=== PATIENT | male | born 1995 | race Caucasian/White ===

== ENCOUNTER 2017-12-24 19:47 | Inpatient (IN) | payer SELFPAY ==
[~2017-12-24 19:47] MED LIST: LORazepam 2 MG/ML VIAL ONE
[2017-12-24] MEDS ORDERED: NA CHLORIDE 0.9% 2,000 ML ONE (20:17)
[2017-12-24 20:24] LABS: Absolute Lymphocytes (CBC) 1.9 K/uL (0.7-4.9); Absolute Monocytes 0.8 K/uL (0.1-1.3); Absolute Neutrophil 7.3 K/uL (1.8-8.0); Basophils % 0.4 % (0-1.3); Eosinophils % 1.1 % (0-4.4); MCV 90.7 fL (80-100); MPV 8.4 fL (7.6-11.3); Monocytes % 7.5 % (3.3-12.3); RBC Red Blood Cell Count 4.74 M/uL (4.33-5.43)
[2017-12-24 20:28] LABS: Protime INR 1.11
[2017-12-24 20:52] LABS: Urine Blood NEGATIVE (NEG); Urine Glucose 2+ (NEG); Urine Protein 1+ (NEG); Urine Specific Gravity 1.025 (1.005-1.030); Urine pH 6.5 (5.0-7.0)
[2017-12-24 21:05] LABS: Barbiturates NEGATIVE (NEGATIVE); Benzodiazepines POSITIVE (NEGATIVE); Cocaine NEGATIVE (NEGATIVE); METHAMPHETAM POSITIVE (NEGATIVE); Methadone NEGATIVE (NEGATIVE); Opiates NEGATIVE (NEGATIVE); Phencyclidine NEGATIVE (NEGATIVE); THC Cannibis POSITIVE (NEGATIVE)
[2017-12-24 21:44] LABS: ALT/SGPT 24 U/L (12-78); AST/SGOT 27 U/L (15-37); Albumin 3.8 g/dL (3.4-5.0); Alkaline Phosphatase 73 U/L (45-117); BUN Blood Urea Nitrogen 6 mg/dL (7-18); Bicarbonate 26 mmol/L (21-32); Bilirubin Direct 0.1 mg/dL (0-0.2); Bilirubin Total 0.4 mg/dL (0.2-1.0); Glucose Level 202 mg/dL (74-106); Protein, Total 6.9 g/dL (6.4-8.2); Sodium Level 139 mmol/L (136-145)
[2017-12-24 21:47] LABS: Alcohol Serum/Plasma < 3 mg/dL (0-3)
[2017-12-24 21:49] LABS: Potassium 2.9 mmol/L (3.5-5.1)
[2017-12-24] MEDS ORDERED: D5.45NS W/KCL 20MEQ 1,000 ML IV ONE (22:12)
--- NOTE | 2017-12-24 22:36 | EDPHYS ---
Physician Documentation [facility] Name: Doctor Davis Age: 22 yrs Sex: Male : 1995 Arrival Date: 12/24/2017 Time: 19:51 Bed 2 Private MD: ED Physician Néstor Arora HPI: 12/24 20:00 This 22 yrs old Male presents to ER via Unassigned with complaints of Altered cp Mental Status. 20:00 The patient presents with decreased responsiveness. Onset: The symptoms/episode cp began/occurred at an unknown time. Possible causes: drug use, amphetamines, overdose on tylenol PM. 20:00 Current symptoms: In the emergency department the patient's symptoms have worsened, cp moderately. 20:00 Associated signs and symptoms: Pertinent positives: agitation, combativeness, Pertinent cp negatives: diarrhea, vomiting. Patient's baseline: Neuro: alert and fully oriented, Motor: no deficits, Ambulation: walks without assistance, Speech: normal. Patient reportedly took approximately 150 tablets of tylenol PM intentionally approximately 1 hour [employer]IOR [employer] as reported by friend after argument with girlfriend. Historical: - Allergies: 20:06 Tylenol; lp1 - Home Meds: 20:06 Unable to obtain [Active]; lp1 - PMHx: 20:06 Seizures; lp1 - PSHx: 20:06 Unable to obtain; lp1 - Immunization history:: Adult Immunizations unknown. - Social history:: Smoking status: unknown Patient uses street drugs, Methamphetamine (Meth). - Ebola Screening: : No symptoms or risks identified at this time. ROS: 20:05 Constitutional: Negative for fever. cp 20:05 Unable to obtain ROS due to altered mental status. cp Exam: 20:12 Constitutional: The patient appears alert, awake, non-toxic, well developed, well cp nourished, in obvious distress, mildly distressed, agitated 20:12 Head/Face: Normocephalic, atraumatic. cp 20:12 Eyes: Periorbital structures: appear normal, Pupils: constricted, bilaterally, Conjunctiva: normal, no exudate, no injection, Sclera: no appreciated abnormality, Lids and lashes: appear normal, bilaterally. 20:12 ENT: External ear(s): are unremarkable, Ear canal(s): are normal, clear, TM's: dullness, bilaterally, Nose: is normal, Mouth: Lips: dry, Posterior pharynx: is normal, airway is patent. 20:12 Neck: ROM/movement: is normal, is supple, without pain, no range of motions limitations, no meningismus, no nuchal rigidity. 20:12 Chest/axilla: Inspection: normal, Palpation: is normal, no crepitus, no tenderness. 20:12 Cardiovascular: Rate: tachycardic, Rhythm: regular, JVD: is not appreciated. 20:12 Respiratory: the patient does not display signs of respiratory distress, Respirations: normal, no use of accessory muscles, no retractions, no splinting, no tachypnea, Breath sounds: are clear throughout, no decreased breath sounds, no stridor, no wheezing. 20:12 Abdomen/GI: Inspection: abdomen appears normal, Bowel sounds: active, all quadrants, Palpation: abdomen is soft and non-tender, in all quadrants, rebound tenderness, is not appreciated, voluntary guarding, is not appreciated, involuntary guarding, is not appreciated. 20:12 Back: pain, is absent, ROM is normal. 20:12 Skin: Appearance: Temperature: warm, dry. 20:12 Neuro: Orientation: Not oriented to person, place, time, Mentation: slow to respond, Cerebellar function: unable to test, Motor: unable to test, Sensation: unable to test. Vital Signs: 20:04 BP 152 / 86; Pulse 109; Resp 17; Temp 98.6(A); Pulse Ox 97% on R/A; Weight 81.65 kg; lp1 Height 5 ft. 7 in. (170.18 cm); 20:30 BP 155 / 98; Pulse 122; Resp 21; Pulse Ox 97% on R/A; lp1 21:00 BP 153 / 89; Pulse 96; Resp 21; Pulse Ox 97% on R/A; lp1 22:35 BP 138 / 96; Pulse 90; Resp 18; Pulse Ox 99% on R/A; aa1 12/25 00:00 BP 170 / 92; Pulse 91; Resp 17; Pulse Ox 99% on R/A; lp1 01:05 BP 140 / 92; Pulse 88; Resp 19; Pulse Ox 98% on R/A; lp1 12/24 20:04 Body Mass Index 28.19 (81.65 kg, 170.18 cm) lp1 [place] Coma Score: 12/24 20:00 Eye Response: to pain(2). Verbal Response: confused(4). Motor Response: localizes lp1 pain(5). Total: 11. MDM: 19:57 Patient medically screened. cp 22:10 Data reviewed: vital signs, nurses notes, lab test result(s), EKG, and as a result, I will admit patient. 22:15 Physician consultation: Aracely Steve MD was called at 22:15, was contacted at 22:15, cp regarding admission, to the ICU, patient's condition. 12/24 19:56 Order name: Acetaminophen; Complete Time: 21:54 cp 12/24 19:56 Order name: Basic Metabolic Panel; Complete Time: 21:54 cp 12/24 21:56 Interpretation: Normal except: K 2.9; GLUC 202; BUN 6; GFR 84; CA 8.4. cp 12/24 19:56 Order name: CBC with Diff; Complete Time: 21:54 cp 12/24 19:56 Order name: ETOH Level; Complete Time: 21:54 cp 12/24 19:56 Order name: Hepatic Function; Complete Time: 21:54 cp 12/24 19:56 Order name: PT-INR; Complete Time: 21:54 cp 12/24 19:56 Order name: Ptt, Activated; Complete Time: 21:54 cp 12/24 19:56 Order name: Salicylate; Complete Time: 21:54 cp 12/24 19:56 Order name: Urine Drug Screen; Complete Time: 21:54 cp 12/24 20:26 Order name: Urine Dipstick--Ancillary (enter results); Complete Time: 21:54 12/24 21:59 Order name: Acetaminophen: redraw \T\2230; Complete Time: 23:18 cp 12/24 19:56 Order name: EKG; Complete Time: 19:57 cp 12/24 19:56 Order name: EKG - Nurse/Tech; Complete Time: 22:44 cp 12/24 19:56 Order name: IV Saline Lock; Complete Time: 20:08 cp 12/24 19:56 Order name: Labs collected and sent; Complete Time: 20:08 cp 12/24 19:56 Order name: Urine Dipstick-Ancillary (obtain specimen); Complete Time: 20:08 12/24 19:56 Order name: IV; Complete Time: 20:08 cp 12/24 19:57 Order name: Owens; Complete Time: 20:08 cp 12/24 20:34 Order name: Accucheck Blood Glucose; Complete Time: 21:24 cp Administered Medications: 19:44 Drug: Ativan 2 mg Route: IVP; Site: right antecubital; lp1 21:24 Follow up: Response: No adverse reaction; Marked relief of symptoms lp1 20:18 Drug: NS 0.9% 1000 ml Route: IV; Rate: 1 bolus; Site: left forearm; lp1 21:24 Follow up: IV Status: Completed infusion; IV Intake: 1000ml lp1 21:24 Drug: NS 0.9% 1000 ml Route: IV; Rate: 1 bolus; Site: left forearm; lp1 22:06 Follow up: IV Status: Completed infusion; IV Intake: 1000ml lp1 22:23 Drug: D5-1/2 NS with KCl 20 mEq/L 1000 ml Route: IV; Rate: 200 ml/hr; Site: left lp1 forearm; 23:39 Follow up: IV Status: Infusion continued upon admission lp1 23:13 Drug: Ativan 1 mg Route: IVP; Site: left forearm; lp1 23:38 Follow up: Response: Marked relief of symptoms lp1 23:32 CANCELLED (Physician Discretion): MucoMYST - Acetylcysteine 50 mg/kg IV at calculated cp rate once; not to exceed 5.5 grams, administer over 4 hours 12/25 00:45 Drug: MucoMYST - Acetylcysteine 150 mg/kg Route: IV; Rate: calculated rate; Site: left lp1 forearm; 00:52 Follow up: IV Status: Infusion continued upon admission lp1 01:06 Drug: Ativan 2 mg Route: IVP; Site: right antecubital; lp1 01:06 Follow up: Given prior to transfer to ICU lp1 Point of Care Testing: Blood Glucose: 12/24 19:45 Blood Glucose: 195 mg/dL; lp1 22:06 Blood Glucose: 74 mg/dL; lp1 Ranges: Critical Glucose Levels:Adult <50 mg/dl or >400 mg/dl <40 mg/dl or >180 mg/dl Disposition: 12/25 01:50 Chart complete. cp 02:03 Co-signature as Attending Physician, Néstor Arora MD. rn Disposition: 12/24/17 22:36 Hospitalization ordered by Aracely Steve for Inpatient Admission. Preliminary diagnosis are Suicide attempt, Hypokalemia, Benadryl Overdose, Altered mental status, unspecified. - Bed requested for Intensive Care Unit. - Status is Inpatient Admission. lp1 - Condition is Stable. - Problem is new. - Symptoms have improved. UTI on Admission? No Signatures: Dispatcher [employer] EDMS Damaris Eddy RN RN Néstor Arora MD MD rn Pena, Laura, RN RN lp1 Se Leong PA PA cp Corrections: (The following items were deleted from the chart) 12/24 21:56 21:56 Normal except: K 2.9; GLUC 202; BUN 6; GFR 84. cp cp 23:22 22:36 Hospitalization Ordered by Aracely Steve MD for Inpatient Admission. Preliminary kl diagnosis is Suicide attempt; Hypokalemia; Benadryl Overdose. Bed requested for Intensive Care Unit. Status is Inpatient Admission. Condition is Stable. Problem is new. Symptoms have improved. UTI on Admission? No. cp 23:32 23:17 MucoMYST - Acetylcysteine 50 mg/kg IV at calculated rate once; not to exceed 5.5 cp grams, administer over 4 hours ordered. cp 23:47 23:22 12/24/2017 22:36 Hospitalization Ordered by Aracely Steve MD for Inpatient cp Admission. Preliminary diagnosis is Suicide attempt; Hypokalemia; Benadryl Overdose. Bed requested for Intensive Care Unit. Status is Inpatient Admission. Condition is Stable. Problem is new. Symptoms have improved. UTI on Admission? No. kl 12/25 01:37 12/24 23:47 12/24/2017 22:36 Hospitalization Ordered by Aracely Steve MD for Inpatient lp1 Admission. Preliminary diagnosis is Suicide attempt; Hypokalemia; Benadryl Overdose; Altered mental status, unspecified. Bed requested for Intensive Care Unit. Status is Inpatient Admission. Condition is Stable. Problem is new. Symptoms have improved. UTI on Admission? No. cp
--- NOTE | 2017-12-24 22:36 | ER ---
Nurse's Notes [facility] Name: Doctor Davis Age: 22 yrs Sex: Male : 1995 Arrival Date: 12/24/2017 Time: 19:51 Bed 2 Private MD: Diagnosis: Suicide attempt;Hypokalemia;Benadryl Overdose;Altered mental status, unspecified Presentation: 12/24 20:00 Presenting complaint: EMS states: Patient has a hx of doing meth, had a break up with lp1 girlfriend today and possibly took 150 pills of what may have been Tylenol PM an hour ago, patient's friend unsure; Patient altered on arrival of EMS, PD at bedside for combativeness. Transition of care: patient was not received from another setting of care. Onset of symptoms was December 24, 2017 at 19:00. Risk Assessment: Do you want to hurt yourself or someone else? Other: Patient ingested multiple pills after breakup with girlfriend. Initial Sepsis Screen: Does the patient meet any 2 criteria? No. Patient's initial sepsis screen is negative. Does the patient have a suspected source of infection? No. Patient's initial sepsis screen is negative. Care prior to arrival: Medication(s) given: 25 g of Dextrose IV initiated. 20 GA, in the right antecubital area, Glucose check: 50 Oxygen administered. via nasal cannula. 20:00 Method Of Arrival: EMS: [facility] lp1 20:00 Acuity: CORINNA 2 lp1 Historical: - Allergies: 20:06 Tylenol; lp1 - Home Meds: 20:06 Unable to obtain [Active]; lp1 - PMHx: 20:06 Seizures; lp1 - PSHx: 20:06 Unable to obtain; lp1 - Immunization history:: Adult Immunizations unknown. - Social history:: Smoking status: unknown Patient uses street drugs, Methamphetamine (Meth). - Ebola Screening: : No symptoms or risks identified at this time. Screenin:07 Abuse screen: Denies threats or abuse. Denies injuries from another. Nutritional lp1 screening: No deficits noted. Tuberculosis screening: No symptoms or risk factors identified. Fall Risk Total Dickey Fall Scale indicates High Risk Score (45 or more points). Fall prevention measures have been instituted. Side Rails Up X 2 Placed Close to Nursing Station Frequent Obs/Assessments Occuring. Assessment: 20:15 General: Appears unkempt, Behavior is drowsy. Pain: Unable to use pain scale. Patient lp1 is disoriented. Neuro: Level of Consciousness is awake, obtunded, Moves all extremities. Pupils are sluggish. Cardiovascular: Capillary refill < 3 seconds in bilateral fingers toes Patient's skin is warm and dry. Rhythm is sinus rhythm. Respiratory: Airway is patent Trachea midline Respiratory effort is even, Respiratory pattern is regular, Breath sounds are clear bilaterally. GI: Abdomen is non-distended. : No signs and/or symptoms were reported regarding the genitourinary system. EENT: No signs and/or symptoms were reported regarding the EENT system. Derm: Skin is intact, Skin is normal. Musculoskeletal: Capillary refill < 3 seconds, in bilateral fingers. toes. 21:15 Reassessment: No changes from previously documented assessment. Patient continues to be lp1 drowsy, airway intact; gazing all around room, no purposeful eye contact. 22:30 Reassessment: Patient and/or family updated on plan of care and expected duration. Pain lp1 level reassessed. Reassessment: intermittent tremors noted. Neuro: Level of Consciousness is awake, Pupils are PERRLA. 23:30 Reassessment: No changes from previously documented assessment. Patient and/or family lp1 updated on plan of care and expected duration. Pain level reassessed. 23:30 Reassessment:. lp1 12/25 00:00 Reassessment: Patient's mother at bedside, aware of admission; Patient continues to lp1 have intermittent agitation, waves arms, no intentional movements. 01:00 Reassessment: Patient has increasing agitation, family at bedside; Provider notified; lp1 Verbal order given to administer Ativan 2mg IV. Psych: 12/24 20:00 Subjective: Patient's mood is Disoriented from probable overdose. Objective: Patient is lp1 restless, Speech is incoherent, Affect is flat, inappropriate. Interventions: Removed personal items and placed in bag. Patient placed in hospital gown. Searched person for dangerous items. Urine collected and sent for urine drug test. Suicide Risk Assessment: Sad Person Scale: Sex of patient: Male: Score 1 point. Age of patient: Score 1 point if patient 15-34. Depression: Score 1 point if signs of depression are present. Previous Attempt: Score 0 point if patient has not previously attempted suicide. Substance Abuse: Score 1 point if patient abuses alcohol or drugs. Rational Thinking: Score 1 point if patient is lacking rational thinking. Social Support: Score 0 if social support is present/available. Organized Plan: Score 1 point if patient had a plan in place. Relationship: Score 1 point if patient is , , , or for a single male Chronic Sickness: Score 0 point if patient does not have a chronic illness, debilitating, or severe disorder. TOTAL POINTS: If total points are 7-10, the proposed clinical action is to hospitalize or commit. Implement suicide precautions. Safety Checks: Personal items have been removed. Door is open. No visitors are present at this time. Patient uses methamphetamines. 12/25 01:00 Commitment: Patient will be an involuntary commitment. lp1 Vital Signs: 12/24 20:04 BP 152 / 86; Pulse 109; Resp 17; Temp 98.6(A); Pulse Ox 97% on R/A; Weight 81.65 kg; lp1 Height 5 ft. 7 in. (170.18 cm); 20:30 BP 155 / 98; Pulse 122; Resp 21; Pulse Ox 97% on R/A; lp1 21:00 BP 153 / 89; Pulse 96; Resp 21; Pulse Ox 97% on R/A; lp1 22:35 BP 138 / 96; Pulse 90; Resp 18; Pulse Ox 99% on R/A; aa1 12/25 00:00 BP 170 / 92; Pulse 91; Resp 17; Pulse Ox 99% on R/A; lp1 01:05 BP 140 / 92; Pulse 88; Resp 19; Pulse Ox 98% on R/A; lp1 12/24 20:04 Body Mass Index 28.19 (81.65 kg, 170.18 cm) lp1 [place] Coma Score: 12/24 20:00 Eye Response: to pain(2). Verbal Response: confused(4). Motor Response: localizes lp1 pain(5). Total: 11. ED Course: 19:40 Maintain EMS IV. Dressing intact. Good blood return noted. Site clean \T\ dry. Gauge \T\ lp 1 site: 20g R AC. 19:45 Inserted saline lock: 18 gauge in left forearm, using aseptic technique. aa1 19:50 Patient has correct armband on for positive identification. Placed in gown. Bed in low aa1 position. Side rails up X2. Seizure precautions initiated. monitoring analyst on. Pulse ox on. NIBP on. 19:51 Patient arrived in ED. ds1 19:55 Se Leong PA is PHCP. cp 19:55 Néstor Arora MD is Attending Physician. cp 19:55 Owens cath inserted, using sterile technique, 16 Fr., by me, balloon inflated, to aa1 gravity drainage, urine specimen collected. 19:59 Ludivina Vicente, COLTON is Primary Nurse. lp1 20:04 Triage completed. lp1 20:07 Arm band placed on left wrist. lp1 20:15 Safety Checks: Personal items have been removed. The door is open or patient has been lp1 placed in a hallway bed/chair. There are no family/friend visitors at this time. 20:30 Safety Checks: Personal items have been removed. The door is open or patient has been lp1 placed in a hallway bed/chair. There are no family/friend visitors at this time. 20:45 Safety Checks: Personal items have been removed. The door is open or patient has been lp1 placed in a hallway bed/chair. There are no family/friend visitors at this time. 21:00 Safety Checks: Personal items have been removed. The door is open or patient has been lp1 placed in a hallway bed/chair. There are no family/friend visitors at this time. 21:15 Safety Checks: Personal items have been removed. The door is open or patient has been lp1 placed in a hallway bed/chair. There are no family/friend visitors at this time. 21:30 Safety Checks: Personal items have been removed. The door is open or patient has been lp1 placed in a hallway bed/chair. There are no family/friend visitors at this time. 21:45 Safety Checks: Personal items have been removed. The door is open or patient has been lp1 placed in a hallway bed/chair. There are no family/friend visitors at this time. 22:00 Safety Checks: Personal items have been removed. The door is open or patient has been lp1 placed in a hallway bed/chair. There are no family/friend visitors at this time. 22:15 Safety Checks: Personal items have been removed. The door is open or patient has been lp1 placed in a hallway bed/chair. There are no family/friend visitors at this time. 22:15 Notified Nurse Practitioner and/or Physician Med Surg Nurse of a critical lab result(s), k bs1 2.9, tylenol level 67.4. 22:30 Safety Checks: Personal items have been removed. The door is open or patient has been lp1 placed in a hallway bed/chair. There are no family/friend visitors at this time. 22:33 Aracely Steve MD is Hospitalizing Provider. 22:33 Repeat lab(s) drawn. by mo, sent to lab. aa 22:36 Acetaminophen: redraw \T\2230 Sent. aa1 22:45 Safety Checks: Personal items have been removed. The door is open or patient has been lp1 placed in a hallway bed/chair. There are no family/friend visitors at this time. 23:00 Safety Checks: Personal items have been removed. The door is open or patient has been lp1 placed in a hallway bed/chair. There are no family/friend visitors at this time. 23:15 Safety Checks: Personal items have been removed. The door is open or patient has been lp1 placed in a hallway bed/chair. There are no family/friend visitors at this time. 23:30 Safety Checks: Personal items have been removed. The door is open or patient has been lp1 placed in a hallway bed/chair. There are no family/friend visitors at this time. 23:45 Safety Checks: Personal items have been removed. The door is open or patient has been lp1 placed in a hallway bed/chair. A family member and/or friend is present and encouraged to stay. Patient's mother and brother at bedside. 12/25 00:00 Safety Checks: Personal items have been removed. The door is open or patient has been lp1 placed in a hallway bed/chair. A family member and/or friend is present and encouraged to stay. 00:15 Safety Checks: Personal items have been removed. The door is open or patient has been lp1 placed in a hallway bed/chair. A family member and/or friend is present and encouraged to stay. Sitter present at this time. 00:30 Safety Checks: Personal items have been removed. The door is open or patient has been lp1 placed in a hallway bed/chair. A family member and/or friend is present and encouraged to stay. Sitter present at this time. 00:45 Safety Checks: Personal items have been removed. The door is open or patient has been lp1 placed in a hallway bed/chair. A family member and/or friend is present and encouraged to stay. Sitter present at this time. 00:52 No provider procedures requiring assistance completed. Patient admitted, IV remains in lp1 place. 01:00 Safety Checks: Personal items have been removed. The door is open or patient has been lp1 placed in a hallway bed/chair. A family member and/or friend is present and encouraged to stay. Sitter present at this time. 01:15 Safety Checks: Personal items have been removed. The door is open or patient has been lp1 placed in a hallway bed/chair. A family member and/or friend is present and encouraged to stay. Sitter present at this time. 01:30 Safety Checks: Personal items have been removed. The door is open or patient has been lp1 placed in a hallway bed/chair. A family member and/or friend is present and encouraged to stay. Sitter present at this time. Administered Medications: 12/24 19:44 Drug: Ativan 2 mg Route: IVP; Site: right antecubital; lp1 21:24 Follow up: Response: No adverse reaction; Marked relief of symptoms lp1 20:18 Drug: NS 0.9% 1000 ml Route: IV; Rate: 1 bolus; Site: left forearm; lp1 21:24 Follow up: IV Status: Completed infusion; IV Intake: 1000ml lp1 21:24 Drug: NS 0.9% 1000 ml Route: IV; Rate: 1 bolus; Site: left forearm; lp1 22:06 Follow up: IV Status: Completed infusion; IV Intake: 1000ml lp1 22:23 Drug: D5-1/2 NS with KCl 20 mEq/L 1000 ml Route: IV; Rate: 200 ml/hr; Site: left lp1 forearm; 23:39 Follow up: IV Status: Infusion continued upon admission lp1 23:13 Drug: Ativan 1 mg Route: IVP; Site: left forearm; lp1 23:38 Follow up: Response: Marked relief of symptoms lp1 23:32 CANCELLED (Physician Discretion): MucoMYST - Acetylcysteine 50 mg/kg IV at calculated cp rate once; not to exceed 5.5 grams, administer over 4 hours 12/25 00:45 Drug: MucoMYST - Acetylcysteine 150 mg/kg Route: IV; Rate: calculated rate; Site: left lp1 forearm; 00:52 Follow up: IV Status: Infusion continued upon admission lp1 01:06 Drug: Ativan 2 mg Route: IVP; Site: right antecubital; lp1 01:06 Follow up: Given prior to transfer to ICU lp1 Point of Care Testing: Blood Glucose: 12/24 19:45 Blood Glucose: 195 mg/dL; lp1 22:06 Blood Glucose: 74 mg/dL; lp1 Ranges: Intake: 21:24 IV: 1000ml; Total: 1000ml. lp1 22:00 IV: 2000ml (IV Fluid); Total: 3000ml. lp1 22:06 IV: 1000ml; Total: 4000ml. lp1 Output: 22:00 Urine: 1000ml (Owens); Total: 1000ml. lp1 12/25 00:00 Urine: 1000ml (Owens); Total: 2000ml. lp1 Outcome: 12/24 22:36 Decision to Hospitalize by Provider. cp 12/25 00:52 critical lp1 Instructed on the need for admit, mother at bedside 00:58 Admitted to ICU accompanied by nurse, accompanied by tech, via stretcher, room 1, with lp1 chart, Report called to COLTON Navarrete 01:37 Patient left the ED. lp1 Signatures: Sandra Stevenson RN RN aa1 Lillie Solomon ds1 Ludivina Vicente RN RN lp1 Se Leong PA PA Nola Zee, COLTON RN bs1 Corrections: (The following items were deleted from the chart) 12/24 20:18 20:04 BP 152 / 86; Pulse 109bpm; Resp 17bpm; Pulse Ox 97% RA; 81.65 kg; Height 5 ft. 7 lp1 in.; BMI: 28.1; lp1
[2017-12-24] MEDS ORDERED: LORazepam 2 MG/ML VIAL ONE (23:13)
[2017-12-24] MEDS: ACETYLCYSTEINE 8,200 MG in D5W 1,000 ML IV SCH (23:45)
--- NOTE | 2017-12-24 23:50 | P.HP ---
Certification for Inpatient Patient admitted to: Inpatient With expected LOS: >2 Midnights Practitioner: I am a practitioner with admitting privileges, knowledge of patient current condition, hospital course, and medical plan of care. Services: Services provided to patient in accordance with Admission requirements found in Title 42 Section 412.3 of the Code of Federal Regulations Patient History Date of Service: 12/24/17 Reason for admission: APAP overdose History of Present Illness: Mr Davis is a 22 years old male with history of seizure disorder, who apparently took possible 150 pills of Tylenol #3 after broke up with her girlfriend. It was a suicidal attempt. The patient arrived agitated, unable to provide any history. He has received ativan IV to decrease his level of agitation. Toxicology report shows acetaminophen level of 67.4 ug/ml. Subsequent monitor level revealed 95.3 ug/ml. UDS was positive for TCH, amphetamines, and benzodiazepines. Allergies acetaminophen [From Tylenol] Allergy (Unverified 10/24/15 14:26) Unknown No Known Drug Allergies Allergy (Unverified 12/19/14 20:39) Unknown NKA Allergy (Uncoded 07/08/15 22:21) Unknown Home medications list reviewed: Yes Home Medications: Carbamazepine [Tegretol*] 200 mg PO BID 03/30/15 - Past Medical/Surgical History Diabetic: No -: Seizures -: Asthma -: Compound FX Left Arm - Family History Family History: Reviewed- Non-Contributory - Social History Smoking Status: Unknown if ever smoked Alcohol use: Yes CD- Drugs: Yes Caffeine use: Yes Place of Residence: Home Review of Systems is unable to be obtained (uncooperative patient) Physical Examination - Physical Exam General: In no apparent distress, Other (sedated with medication due to agitation) HEENT: Atraumatic, PERRLA, Mucous membr. moist/pink, EOMI, Sclerae nonicteric Neck: Supple, 2+ carotid pulse no bruit, No LAD, Without JVD or thyroid abnormality Respiratory: Clear to auscultation bilaterally, Normal air movement Cardiovascular: Regular rate/rhythm, Normal S1 S2 Gastrointestinal: Normal bowel sounds, No tenderness Musculoskeletal: No tenderness Integumentary: No rashes Neurological: Normal tone, Sensation intact, Abnormal speech Lymphatics: No axilla or inguinal lymphadenopathy - Studies Laboratory Data (last 24 hrs) 12/24/17 19:45: PT 13.1 H, INR 1.11, APTT 23.9 L 12/24/17 19:45: WBC 10.2, Hgb 15.2, Hct 43.0, Plt Count 330 12/24/17 19:45: Sodium 139, Potassium 2.9 L*, BUN 6 L, Creatinine 1.10, Glucose 202 H, Total Bilirubin 0.4, AST 27, ALT 24, Alkaline Phosphatase 73 Assessment and Plan - Problems (Diagnosis) (1) Suicide attempt by acetaminophen overdose Current Visit: Yes Status: Acute Qualifiers: Encounter type: initial encounter Qualified Code(s): T39.1X2A - Poisoning by 4-Aminophenol derivatives, intentional self-harm, initial encounter (2) Hypokalemia Current Visit: Yes Status: Acute (3) Acute encephalopathy Current Visit: Yes Status: Acute - Plan The patient will be admitted to ICU for close monitoring. Initial liver function test and PT, INR were normal. He is receiving the first dose of Acetylcystine. The complete protocol has been ordered. Poison control was contacted and we are following their recommendations. Will replace electrolytes as needed by protocol. - Advance Directives Does patient have a Living Will: No Does patient have a Durable POA for Healthcare: No - Code Status/Comfort Care Code Status Assessed: Yes Code Status: Full Code
[2017-12-25] MEDS ORDERED: Acetylcysteine 6000mg/30mL IV ONE (00:40)
[2017-12-25] MEDS ORDERED: NA CHLORIDE 0.9% 250 ML ONE (00:40)
[2017-12-25] MEDS ORDERED: LORazepam 2 MG/ML VIAL ONE (01:07)
[2017-12-25] MEDS ORDERED: ONDANSETRON 4 MG/2 ML VIAL IV PRN (01:58)
[2017-12-25] MEDS: HALOPERIDOL LACT 5 MG/ML INJ IV PRN ×4 (02:15→19:51)
[2017-12-25] MEDS ORDERED: ACETYLCYST 6,000 MG/30 ML VIAL ONE ×2 (02:29→02:30)
[2017-12-25 02:46] LABS: Absolute Lymphocytes (CBC) 1.4 K/uL (0.7-4.9); Absolute Monocytes 0.6 K/uL (0.1-1.3); Absolute Neutrophil 7.2 K/uL (1.8-8.0); Basophils % 0.3 % (0-1.3); Eosinophils % 0.3 % (0-4.4); Hematocrit 41.9 % (39.6-49.0); Lymphocytes % 14.9 % (15.3-44.8); MCH 32.2 pg (27.0-35.0); MCV 91.7 fL (80-100); MPV 8.3 fL (7.6-11.3); Monocytes % 6.6 % (3.3-12.3); RBC Red Blood Cell Count 4.57 M/uL (4.33-5.43)
[2017-12-25 02:47] LABS: Protime INR 1.25
[2017-12-25 03:24] LABS: ALT/SGPT 27 U/L (12-78); AST/SGOT 25 U/L (15-37); Albumin 3.6 g/dL (3.4-5.0); Alkaline Phosphatase 70 U/L (45-117); BUN Blood Urea Nitrogen 4 mg/dL (7-18); Bicarbonate 25 mmol/L (21-32); Bilirubin Total 0.7 mg/dL (0.2-1.0); Glucose Level 92 mg/dL (74-106); Potassium 3.5 mmol/L (3.5-5.1); Protein, Total 6.6 g/dL (6.4-8.2); Sodium Level 144 mmol/L (136-145)
[2017-12-25] MEDS: NA CHLORIDE 0.9% 1,000 ML IV SCH ×2 (04:01→11:58)
[2017-12-25] MEDS ORDERED: D5W 1,000 ML IV ONE (04:29)
[2017-12-25] MEDS: ACETYLCYSTEINE 8,200 MG in D5W 1,000 ML IV SCH (07:00)
[2017-12-25 08:07] LABS: Absolute Neutrophil 5.9 K/uL (1.8-8.0); Basophils % 0.6 % (0-1.3); Eosinophils % 1.7 % (0-4.4); Hematocrit 45.2 % (39.6-49.0); Lymphocytes % 29.4 % (15.3-44.8); MCH 32.1 pg (27.0-35.0); MCV 92.1 fL (80-100); MPV 8.4 fL (7.6-11.3); Monocytes % 9.9 % (3.3-12.3)
[2017-12-25 08:11] LABS: Protime INR 1.34
[2017-12-25 08:27] LABS: ALT/SGPT 29 U/L (12-78); AST/SGOT 26 U/L (15-37); Albumin 3.7 g/dL (3.4-5.0); Alkaline Phosphatase 75 U/L (45-117); BUN Blood Urea Nitrogen 3 mg/dL (7-18); Bicarbonate 27 mmol/L (21-32); Bilirubin Total 0.5 mg/dL (0.2-1.0); Glucose Level 68 mg/dL (74-106); Potassium 3.7 mmol/L (3.5-5.1); Protein, Total 6.7 g/dL (6.4-8.2); Sodium Level 143 mmol/L (136-145)
[2017-12-25] MEDS ORDERED: ZIPRASIDONE MESYLA 20 MG/VIAL IM ONE ×3 (08:49→18:01)
[2017-12-25] MEDS ORDERED: WATER FOR INJ,STERILE 10 ML IM PRN ×2 (08:49→19:02)
--- NOTE | 2017-12-25 09:28 | EKG ---
Test Date: 2017-12-24 Test Time: 22:36:53 Movable Bulkhead Installer: CONRADO MEASUREMENT RESULTS: Intervals: Rate: 86 WA: 152 QRSD: 96 QT: 386 QTc: 461 [place]: P: 58 WA: 152 QRS: 58 T: 66 INTERPRETIVE STATEMENTS: Normal sinus rhythm Cannot rule out Anterior infarct, age undetermined Abnormal ECG Compared to ECG 05/13/2015 13:03:09 Myocardial infarct finding now present Sinus arrhythmia no longer present Electronically Signed On 12-25-17 09:27:19 CDT by Amado Moon
[2017-12-25] MEDS ORDERED: KCL 20 MEQ/100 mL IVPB 20 MEQ/100 ML BAG IV SCH (14:00)
[2017-12-25] MEDS: D5 0.45 NS 1,000 ML IV SCH (14:01)
[2017-12-25 14:47] LABS: Absolute Lymphocytes (CBC) 2.2 K/uL (0.7-4.9); Absolute Monocytes 0.8 K/uL (0.1-1.3); Absolute Neutrophil 6.4 K/uL (1.8-8.0); Basophils % 0.4 % (0-1.3); Eosinophils % 1.5 % (0-4.4); Lymphocytes % 22.8 % (15.3-44.8); MCH 31.7 pg (27.0-35.0); MCV 92.2 fL (80-100); MPV 8.3 fL (7.6-11.3); Monocytes % 8.7 % (3.3-12.3)
[2017-12-25 14:48] LABS: Protime INR 1.29
[2017-12-25 14:58] LABS: ALT/SGPT 25 U/L (12-78); AST/SGOT 19 U/L (15-37); Albumin 3.7 g/dL (3.4-5.0); Alkaline Phosphatase 69 U/L (45-117); BUN Blood Urea Nitrogen 2 mg/dL (7-18); Bicarbonate 24 mmol/L (21-32); Bilirubin Total 0.5 mg/dL (0.2-1.0); Glucose Level 77 mg/dL (74-106); Potassium 3.8 mmol/L (3.5-5.1); Protein, Total 6.6 g/dL (6.4-8.2); Sodium Level 143 mmol/L (136-145)
[2017-12-25] MEDS ORDERED: LORazepam 2 MG/ML VIAL IV ONE (16:03)
[2017-12-25 22:16] LABS: Protime INR 1.34
[2017-12-25 22:18] LABS: Absolute Monocytes 0.7 K/uL (0.1-1.3); Absolute Neutrophil 6.1 K/uL (1.8-8.0); Basophils % 0.4 % (0-1.3); Hematocrit 44.4 % (39.6-49.0); Lymphocytes % 22.5 % (15.3-44.8); MCH 31.4 pg (27.0-35.0); MCV 92.8 fL (80-100); MPV 8.3 fL (7.6-11.3); Monocytes % 7.7 % (3.3-12.3); RBC Red Blood Cell Count 4.79 M/uL (4.33-5.43)
[2017-12-25 22:27] LABS: ALT/SGPT 23 U/L (12-78); AST/SGOT 18 U/L (15-37); Albumin 3.5 g/dL (3.4-5.0); Alkaline Phosphatase 68 U/L (45-117); BUN Blood Urea Nitrogen 1 mg/dL (7-18); Bicarbonate 25 mmol/L (21-32); Bilirubin Total 0.4 mg/dL (0.2-1.0); Glucose Level 93 mg/dL (74-106); Potassium 3.5 mmol/L (3.5-5.1); Protein, Total 6.4 g/dL (6.4-8.2); Sodium Level 143 mmol/L (136-145)
[2017-12-26] MEDS: D5 0.45 NS 1,000 ML IV SCH ×3 (00:07→20:11)
[2017-12-26] MEDS: HALOPERIDOL LACT 5 MG/ML INJ IV PRN (00:07)
--- NOTE | 2017-12-26 08:37 | PN ---
Subjective: Currently he is lying in bed. He looks comfortable. He is sleep he had IV geodon earlier, but combative. Review of Systems: Otherwise unobtainable. Physical Examination: Vital Signs: Blood pressure is 154/93, respiratory rate 16, pulse 77, temperature 97.1. General: He is sleeping. Does not look in any distress, comfortable. HEENT: Atraumatic, normocephalic. Oral mucosa is moist. Neck: Supple. No JVD. No carotid bruits. Chest: Clear to auscultation. Good air entry. Heart: Regular rate and rhythm. S1, S2 normal. No gallop or murmur. Abdomen: Soft, nontender. No masses. No hepatosplenomegaly. Positive bowel sounds. Extremities: No clubbing, cyanosis, or edema. No calf tenderness. Neurologic: Grossly intact. Assessment And Plan: 1. Suicidal attempt by tylenol overdose and street drugs . We will keep the patient in ICU. We will continue monitoring his LFTs. There are no signs of liver damage at this point yet. I will check his ammonia level with the next set, it was not checked before. INR continues to be normal, cont NAC / Mucomyst infusion and he will continue every 4 hours per protocol and up to 17 infusion per poison center control. 2. Encephalopathy, resolved as the patient's drug overdose cleared but the patient was combative, so we will give him 1 dose of Geodon this morning. He is calmer now. 3. Hypokalemia, resolved. 4. Suicide attempt. The patient will need psych eval per hospital protocol and sitter when he is outside the ICU. VICKY/DELLA Voice ID: [id number] Report ID: [id number] MTDAlmaz
[2017-12-26 09:42] LABS: BUN Blood Urea Nitrogen 2 mg/dL (7-18); Bicarbonate 28 mmol/L (21-32); Glucose Level 83 mg/dL (74-106); Potassium 3.6 mmol/L (3.5-5.1); Sodium Level 142 mmol/L (136-145)
[2017-12-26] MEDS ORDERED: KCL 20 MEQ/100 mL IVPB 20 MEQ/100 ML BAG IV SCH (10:00)
--- NOTE | 2017-12-26 11:10 | EKG ---
Test Date: 2017-12-26 Test Time: 08:42:15 Health Safety Specialist: GIA MEASUREMENT RESULTS: Intervals: Rate: 79 NC: 170 QRSD: 92 QT: 382 QTc: 438 [place]: P: 57 NC: 170 QRS: 58 T: 48 INTERPRETIVE STATEMENTS: Normal sinus rhythm Septal infarct, age undetermined Abnormal ECG Compared to ECG 12/24/2017 22:36:53 No significant changes Electronically Signed On 12-26-17 11:09:48 CDT by Amado Moon
--- NOTE | 2017-12-26 11:19 | PN ---
Date of Progress Note: 12/26/2017 Subjective: The patient was seen and examined, chart reviewed, and case discussed with RN. The patient states he is doing well. Denies any abdominal pain. No nausea or vomiting. No acute events overnight. He had received some Haldol and Ativan. Review of Systems: Negative except as above. Medications: List reviewed. Objective: Vital Signs: Temperature 97.1, heart rate 73, blood pressure 155/79 , respirations 17, O2 100% on room air. General: Awake, alert, oriented x3 without any acute distress. CV: S1, S2. No murmurs. Regular rate and rhythm. Peripheral pulses present. Respiratory: Clear to auscultation bilaterally. No wheezing. No stridor. No use of accessory muscles Gastrointestinal: Abdomen is soft, nontender, nondistended. Positive bowel sounds. Extremities: No clubbing, cyanosis, or edema. Neurologic: Nonfocal. Laboratory Data: Sodium 142, potassium 3.6, chloride 109, CO2 28, BUN 2, creatinine 0.8, glucose 83, calcium 8.5, and magnesium 2. Acetaminophen level less than 2 yesterday. Assessment And Plan: A 22-year-old male with; 1. Suicide attempt secondary to Tylenol overdose. The patient is stable. Liver enzymes are normal. Tylenol level is less than 2 seconds. Liver enzymes normal. INR normal. Mucomyst was discontinued yesterday. The patient is medically stable for transfer to inpatient psychiatric facility. 2. Metabolic encephalopathy, resolved. The patient somewhat drowsy, however, able to answer questions appropriately. 3. Hypokalemia. Replace and monitor. /DELLA Voice ID: [id number] Report ID: [id number] MTDD
[2017-12-27 05:19] LABS: BUN Blood Urea Nitrogen 6 mg/dL (7-18); Bicarbonate 29 mmol/L (21-32); Glucose Level 99 mg/dL (74-106); Phosphorus 2.8 mg/dL (2.5-4.9); Potassium 3.6 mmol/L (3.5-5.1); Sodium Level 141 mmol/L (136-145)
[2017-12-27] MEDS ORDERED: D5 0.45 NS 1,000 ML IV ONE (05:22)
[2017-12-27] MEDS: D5 0.45 NS 1,000 ML IV SCH (05:23)
[2017-12-27] MEDS ORDERED: POTASSIUM CL SA 10 MEQ TAB PO ONE (05:25)
--- NOTE | 2017-12-27 08:52 | RAD REPORT ---
EXAM DESCRIPTION: RAD - Hand Right 2 View - 12/27/2017 6:56 am CLINICAL HISTORY: SWELLING Pain COMPARISON: Hand Right 3 View dated 04/04/2012 FINDINGS: Soft tissue swelling is seen along the dorsum of the hand. No fracture, dislocation or rad iopaque foreign body. Old ulnar styloid avulsion seen.
[2017-12-27] MEDS: HALOPERIDOL LACT 5 MG/ML INJ IV PRN (14:15)
--- NOTE | 2017-12-27 14:51 | EKG ---
Test Date: 2017-12-27 Test Time: 10:51:42 Glove Parts Cutter: GIA MEASUREMENT RESULTS: Intervals: Rate: 78 WA: 144 QRSD: 88 QT: 358 QTc: 408 [place]: P: 58 WA: 144 QRS: 59 T: 67 INTERPRETIVE STATEMENTS: Sinus rhythm with marked sinus arrhythmia Cannot rule out Anterior infarct, age undetermined Abnormal ECG Compared to ECG 12/26/2017 08:42:15 No significant changes Electronically Signed On 12-27-17 14:50:13 CDT by Amado Moon
--- NOTE | 2017-12-28 03:04 | DS ---
Date of Discharge: 12/27/2017 Admitting Diagnoses: 1.Suicide attempt secondary to acetaminophen overdose. 2.Hypokalemia. 3.Acute encephalopathy. Discharge Diagnoses: 1.Acetaminophen overdose, treated with acetylcysteine. 2.Suicide attempt. 3.Metabolic encephalopathy, resolved. 4.Hypokalemia, resolved. Hospital Course: The patient is a 22-year-old male comes into the hospital with acetaminophen overdo se. The patient took 150 pills of Tylenol No. 3 after breaking up with his girlfriend. This is a [place] icide attempt. The patient did have elevated level of acetaminophen and subsequent levels went up to 95. He was treated with acetylcysteine. Poison Control was also contacted by the admitting limai tracie. The patient's Tylenol level improved and was untraceable on the . The patient did have some mild electrolyte abnormalities, which improved. He never had any elevation in his liver enzymes. H is INR remained stable. The patient's mental status also improved and he was back to his baseline. The patient was then referred for [facility] for inpatient psychiatric referral due to suicide attemp t. The patient was then discharged after being accepted by Psych Facility. Medications: As per medication reconciliation list. Followup: Follow up with psychiatrist upon transfer. Return to ER for worsening condition. Diet: Regular. Activity: As tolerated. Total time spent discharging the patient was 35 minutes. Physical Examination: General: Awake, alert, oriented x3, not in acute distress. CV: S1, S2. No murmurs. Respiratory: Clear to auscultation bilaterally. No wheezing. Gastrointestinal: Abdomen is soft, nontender, nondistended. Positive bowel sounds. Extremities: No clubbing or cyanosis. Mild edema of the right hand. Neurologic: Nonfocal. Psych: Mood is depressed. Affect is congruent with mood. Insight and judgment are poor. SA/MODL Voice ID: [id number] Report ID: [id number]
[2017-12-28 05:39] LABS: ALT/SGPT 23 U/L (12-78); AST/SGOT 13 U/L (15-37); Albumin 3.9 g/dL (3.4-5.0); Alkaline Phosphatase 78 U/L (45-117); BUN Blood Urea Nitrogen 5 mg/dL (7-18); Bicarbonate 30 mmol/L (21-32); Bilirubin Total 0.4 mg/dL (0.2-1.0); Glucose Level 93 mg/dL (74-106); Potassium 3.7 mmol/L (3.5-5.1); Protein, Total 7.1 g/dL (6.4-8.2); Sodium Level 141 mmol/L (136-145)
[2017-12-28] MEDS ORDERED: POTASSIUM 25 MEQ EFFERV TAB PO ONE (06:00)
[2017-12-28] MEDS: HALOPERIDOL LACT 5 MG/ML INJ IV PRN (10:14)
[2017-12-28] MEDS ORDERED: LORazepam 2 MG/ML VIAL ONE (14:37)
[2017-12-28] MEDS ORDERED: NALOXONE HCL 2 MG/2 ML VIAL ONE (14:39)
--- NOTE | 2017-12-28 14:40 | PN ---
Date of Progress Note: 12/28/2017 Subjective: The patient seen and examined. Chart reviewed and case discussed with RN. The patient still not accepted to [facility], waiting on a bed, otherwise doing well. No complaints. Review of Systems: Negative except as above. Medications: List reviewed. Physical Examination: Vital Signs: Temperature 98.6, heart rate 71, blood pressure 113/50, respirations 11, O2 98% on room air. General: Awake, alert, oriented x3. No acute distress. CV: S1, S2. No murmurs. Respiratory: Moving air well bilaterally. Gastrointestinal: Abdomen is soft, nontender, nondistended. Positive bowel sounds. Extremities: No clubbing, cyanosis, or edema. Neuro: Nonfocal. Psych: Mood is depressed. Affect is flat. Insight and judgment are fair. Laboratory Data: Sodium 141, potassium 3.7, chloride 105, CO2 30, BUN 5, creatinine 0.9, glucose 93, calcium 8.8, AST 13, ALT 23, alkaline phosphatase 78. Assessment And Plan: A 22-year-old male with: 1. Suicide attempt, intentional overdose of acetaminophen. 2. Hypokalemia, replaced. 3. Acute metabolic encephalopathy, resolved. Plan: Continue monitoring with one-on-one due to suicide precautions. The patient awaiting bed at [facility]. The patient's emergency senior care will today and the patient will have to be sent to [facility] voluntarily. We will keep in contact with accepting facility once bed is available. ADDENDUM: Patient attempted to leave but was caught in the lobby. He had an episode of postural abnormality and neck jerking however when assessed back in the room, patient is able to talk, able to straighten out his neck and stop posturing. Haldol DC for possible extra pyramidal symptoms. Benztropine and ativan given. Patient became somnolent. SA/MODL Voice ID: [id number] Report ID: [id number] ODELL
[2017-12-28] MEDS ORDERED: BENZTROPINE 2 MG/2 ML VIAL IV ONE (14:41)
[2017-12-28] MEDS ORDERED: NA CHLORIDE 0.9% 1,000 ML IV ONE (14:57)
--- NOTE | 2017-12-28 16:18 | RAD REPORT ---
EXAM DESCRIPTION: CT - Head Brain Wo Cont - 12/28/2017 3:24 pm CLINICAL HISTORY: Transient alteration of awareness COMPARISON: December 2016 TECHNIQUE: Axial 5 mm thick images of the head were obtained without IV contrast. All CT scans are performed using dose optimization technique as appropriate and may include automated exposure control or mA/KV adjustment according to patient size. FINDINGS: No intracranial hemorrhage, mass, edema or shift of mid-line structures. No acute cortical based infarction. No cortical edema or sulcal effacement. No abnormal extra-axial fluid collections. Ventricles are normal. Mastoid air cells and visualized portions of the paranasal sinuses are clear. No acute bony findings. No significant change from comparison. IMPRESSION: Negative non-contrast CT head examination.
[2017-12-28] MEDS: NA CHLORIDE 0.9% 1,000 ML IV SCH (16:47)
[2017-12-28 17:33] VITALS: TEMP 98.4
[2017-12-28 18:38] VITALS: BP 115/66
[2017-12-29] MEDS: NA CHLORIDE 0.9% 1,000 ML IV SCH (02:00)
[2017-12-29 05:17] VITALS: BMI 27.8
[2017-12-29 06:24] VITALS: O2SAT 99
--- NOTE | 2017-12-29 15:19 | P.PN ---
Date of Service: 12/29/17 Patient left AMA before being seen.
== END 2017-12-29 06:55 | disposition left against medical advice (07) | DRG 917 ==
LOC: ER 19:47 → ERHOLD 23:11 → 3RD-ICU 12-25 01:06
PROVIDERS: ADMIT Internal Medicine; ATTEND Family Medicine
DX: T39.1X2A Poisoning by 4-Aminophenol derivatives, intentional self-harm, initial encounter (principal); G93.41 Metabolic encephalopathy; E87.6 Hypokalemia; G40.909 Epilepsy, unspecified, not intractable, without status epilepticus; G25.70 Drug induced movement disorder, unspecified; T43.4X5A Adverse effect of butyrophenone and thiothixene neuroleptics, initial encounter; Y92.230 Patient room in hospital as the place of occurrence of the external cause; Y92.9 Unspecified place or not applicable
CPT/HCPCS: 36415; 51702; 70450; 80048; 80053; 80076; 80307; 80320; 80329; 81003; 82140; 82962; 83735; 84100; 85025; 85610; 85730; 93005; 99285; J0132; J0515; J1630; J3486; J7030; J7060

== ENCOUNTER 2018-01-31 17:03 | Emergency (ER) | payer SELFPAY ==
[2018-01-31] MEDS ORDERED: MORPHINE 4 MG/ML SYR ONE (17:57)
[2018-01-31] MEDS ORDERED: ONDANSETRON 4 MG/2 ML VIAL ONE (17:57)
--- NOTE | 2018-01-31 18:45 | EDPHYS ---
Physician Documentation [facility] Name: Doctor Davis Age: 22 yrs Sex: Male : 1995 Arrival Date: 01/31/2018 Time: 17:07 Bed 4 Private MD: ED Physician Néstor Arora HPI: 01/31 18:00 This 22 yrs old Male presents to ER via EMS with complaints of Fall Injury. pm1 18:00 Details of fall: The patient fell from an upright position, while walking. Onset: The pm1 symptoms/episode began/occurred just prior to arrival. Associated injuries: The patient sustained left leg. The patient has not experienced similar symptoms in the past. The patient has not recently seen a physician, and does not have an established primary care provider. Patient reports that he injured himself in his backyard. Walking outside and stepped into a hole with left leg falling forward. Caught his fall with both hands. Patient presenting with splint applied by EMS to left lower leg. Patient with abrasion to left knee and left hand. Historical: - Allergies: 17:15 Tylenol; ph - Home Meds: 17:15 Carbamazepine Oral [Active]; Depakote Oral [Active]; Dilantin Oral [Active]; ph - PMHx: 17:15 Seizures; ph - PSHx: 17:15 None; ph - Immunization history: Last tetanus immunization: unknown. - Social history:: Smoking status: Patient uses tobacco products, smokes one pack cigarettes per day. - Ebola Screening: : No symptoms or risks identified at this time. ROS: 18:00 Constitutional: Negative for fever, chills, and weight loss, Eyes: Negative for injury, pm1 pain, redness, and discharge, ENT: Negative for injury, pain, and discharge, Neck: Negative for injury, pain, and swelling, Cardiovascular: Negative for chest pain, palpitations, and edema, Respiratory: Negative for shortness of breath, cough, wheezing, and pleuritic chest pain, Abdomen/GI: Negative for abdominal pain, nausea, vomiting, diarrhea, and constipation, Back: Negative for injury and pain, : Negative for injury, bleeding, discharge, and swelling. 18:00 Neuro: Negative for headache, weakness, numbness, tingling, and seizure. 18:00 MS/extremity: Positive for deformity, pain, swelling, of the left lower leg. 18:00 Skin: Positive for abrasion(s), of the left hand and left knee. Exam: 18:00 Constitutional: This is a well developed, well nourished patient who is awake, alert, pm1 and in no acute distress. Head/Face: Normocephalic, atraumatic. Eyes: Pupils equal round and reactive to light, extra-ocular motions intact. Lids and lashes normal. Conjunctiva and sclera are non-icteric and not injected. Cornea within normal limits. Periorbital areas with no swelling, redness, or edema. ENT: Nares patent. No nasal discharge, no septal abnormalities noted. Tympanic membranes are normal and external auditory canals are clear. Oropharynx with no redness, swelling, or masses, exudates, or evidence of obstruction, uvula midline. Mucous membranes moist. Neck: Trachea midline, no thyromegaly or masses palpated, and no cervical lymphadenopathy. Supple, full range of motion without nuchal rigidity, or vertebral point tenderness. No Meningismus. Chest/axilla: Normal chest wall appearance and motion. Nontender with no deformity. No lesions are appreciated. Cardiovascular: Regular rate and rhythm with a normal S1 and S2. No gallops, murmurs, or rubs. No pulse deficits. Respiratory: Lungs have equal breath sounds bilaterally, clear to auscultation and percussion. No rales, rhonchi or wheezes noted. No increased work of breathing, no retractions or nasal flaring. Abdomen/GI: Soft, non-tender, with normal bowel sounds. No distension or tympany. No guarding or rebound. No evidence of tenderness throughout. Back: No spinal tenderness. No costovertebral tenderness. Full range of motion. 19:30 Skin: Appearance: normal except for affected area, injury, abrasion(s), small abrasion pm1 noted, of the left hand and left knee, No punctures or lacerations or abrasions present over location of fracture. Vital Signs: 17:15 BP 154 / 115; Pulse 99; Resp 22; Temp 97.7; Pulse Ox 100% on R/A; Weight 83.91 kg; ph Height 6 ft. 0 in. (182.88 cm); Pain 10/10; 18:15 BP 136 / 86; Pulse 88; Resp 16; Pulse Ox 100% on R/A; Pain 10/10; sg 17:15 Body Mass Index 25.09 (83.91 kg, 182.88 cm) ph Luis Fernando Coma Score: 17:15 Eye Response: spontaneous(4). Verbal Response: oriented(5). Motor Response: obeys ph commands(6). Total: 15. Trauma Score (Adult): 17:15 Eye Response: spontaneous(1); Verbal Response: oriented(1); Motor Response: obeys ph commands(2); Systolic BP: > 89 mm Hg(4); Respiratory Rate: 10 to 29 per min(4); [place] Score: 15; Trauma Score: 12 18:15 Eye Response: spontaneous(1); Verbal Response: oriented(1); Motor Response: obeys sg commands(2); Systolic BP: > 89 mm Hg(4); Respiratory Rate: 10 to 29 per min(4); Luis Fernando Score: 15; Trauma Score: 12 Procedures: 19:15 Splinting: Splint applied to left leg using Orthoglass splint, applied by tech. pm1 Examined by me, post splint application: neurovascular intact, 2+ distal pulses palpable, brisk capillary refill noted, Patient tolerated well. MDM: 17:20 Patient medically screened. pm1 18:35 Counseling: I had a detailed discussion with the patient and/or guardian regarding: the pm1 historical points, exam findings, and any diagnostic results supporting the discharge/admit diagnosis, radiology results, the need for further work-up and treatment in the hospital. 18:40 Physician consultation: Tyrell Velázquez MD was called at 18:32, was contacted at 18:32, pm1 regarding consult, patient's condition, and will see patient tomorrow, Posterior long leg splint, NPO at midnight, admission to hospitalist due to seizure history, basic labs for surgery tomorrow. 18:41 Data reviewed: vital signs. Data interpreted: Pulse oximetry: on room air is 100 %. pm1 Interpretation: normal. 19:00 Refusal of service: The patient/guardian displays adequate decision making capability pm1 and despite a detailed discussion of alternatives, benefits, risks, and consequences refuses: Admission to the hospital for further work-up and treatment, Dx: Closed displaced comminuted fracture of left tibia and fibula. 01/31 18:46 Order name: CBC with Diff pm1 01/31 18:46 Order name: BMP pm1 01/31 17:19 Order name: Tib Fib Left XRAY pm1 01/31 18:46 Order name: Ptt, Activated pm1 01/31 18:46 Order name: PT-INR pm1 01/31 18:46 Order name: Type And Screen pm1 01/31 17:20 Order name: IV Saline Lock; Complete Time: 17:21 pm1 01/31 18:28 Order name: Splint - Long Leg: Posterior w/ Stirrup; Complete Time: 18:57 pm1 Administered Medications: 17:57 Drug: morphine 4 mg Route: IVP; Site: right antecubital; sg 19:26 Follow up: Response: Pain is decreased bp 17:58 Drug: Zofran 4 mg Route: IVP; Site: right antecubital; sg 19:26 Follow up: Response: Nausea is decreased bp Disposition: 02/01 06:03 Co-signature as Attending Physician, Néstor Arora MD. rn Disposition: 01/31/18 19:27 Patient has left against medical advice. - Patients states they are going to Home. - Condition is Fair. Signatures: Dispatcher [employer] EDGA Jhoan Dominguez RN RN Néstor Arora MD MD rn Hall, Patricia, RN RN Kal [place], [employer] pm1 Waylon Ziegler RN RN bp Corrections: (The following items were deleted from the chart) 01/31 18:06 17:58 Tib Fib Left ordered. EDGA EDGA 18:43 18:40 Physician consultation: Tyrell Velázquez MD was called at 18:32, was contacted at pm1 18:32, regarding consult, patient's condition, and will see patient tomorrow, Posterior long leg splint, NPO and midnight, admission to hospitalist due to seizure history, pm1 18:45 18:44 Hospitalization Ordered by Aracely Steve MD for Observation. Preliminary pm1 diagnosis is Displaced comminuted fracture of shaft of left tibia; Displaced comminuted fracture of shaft of left fibula. Bed requested for Telemetry/MedSurg (observation). Status is Observation. Condition is Stable. Problem is new. Symptoms have improved. UTI on Admission? No. pm1 18:47 18:40 Physician consultation: Tyrell Velázquez MD was called at 18:32, was contacted at pm1 18:32, regarding consult, patient's condition, and will see patient tomorrow, Posterior long leg splint, NPO and midnight, admission to hospitalist due to seizure history, pm1 19:26 18:45 01/31/2018 18:44 Hospitalization Ordered by Aracely Steve MD for Observation. bp Preliminary diagnosis is Displaced comminuted fracture of shaft of left tibia - closed; Displaced comminuted fracture of shaft of left fibula - closed. Bed requested for Telemetry/MedSurg (observation). Status is Observation. Condition is Stable. Problem is new. Symptoms have improved. UTI on Admission? No. pm1
--- NOTE | 2018-01-31 18:45 | ER ---
Nurse's Notes [facility] Name: Doctor Davis Age: 22 yrs Sex: Male : 1995 Arrival Date: 01/31/2018 Time: 17:07 Bed 4 Private MD: Diagnosis: Presentation: 01/31 17:12 Presenting complaint: EMS states: " Pt stepped in hole in the yard and fell, obvious ph deformity to R tib/fib, abrasions to maria de jesus arms, pt c/o pain in R wrist, denies head injury or LOC, 170 mcg of Fentanyl administered IVP. Care prior to arrival: Splint applied. Medication(s) given: 170 mcg Fentanyl, 600 CC NS. Mechanism of Injury: Fall from standing position. Trauma event details: Injury occurred in the [facility], Injury occurred: at home. Injury occurred: January 31, 2018. 17:12 Acuity: CORINNA 3 ph 17:12 Method Of Arrival: EMS: [facility] ph 17:15 Transition of care: patient was not received from another setting of care. Onset of sg symptoms was January 31, 2018. Risk Assessment: Do you want to hurt yourself or someone else? Patient reports no desire to harm self or others. Initial Sepsis Screen: Does the patient meet any 2 criteria? No. Patient's initial sepsis screen is negative. Does the patient have a suspected source of infection? No. Patient's initial sepsis screen is negative. Trauma Activation: Not Applicable Physician: ED Physician; Name: ; Notified At: ; Arrived At: Physician: General Surgeon; Name: ; Notified At: ; Arrived At: Physician: Radiology; Name: ; Notified At: ; Arrived At: Physician: Respiratory; Name: ; Notified At: ; Arrived At: Physician: Lab; Name: ; Notified At: ; Arrived At: Historical: - Allergies: 17:15 Tylenol; ph - Home Meds: 17:15 Carbamazepine Oral [Active]; Depakote Oral [Active]; Dilantin Oral [Active]; ph - PMHx: 17:15 Seizures; ph - PSHx: 17:15 None; ph - Immunization history: Last tetanus immunization: unknown. - Social history:: Smoking status: Patient uses tobacco products, smokes one pack cigarettes per day. - Ebola Screening: : No symptoms or risks identified at this time. Screenin:15 Abuse screen: Denies threats or abuse. Denies injuries from another. Nutritional sg screening: No deficits noted. Tuberculosis screening: No symptoms or risk factors identified. Fall Risk None identified. Primary Survey: 17:15 A: Airway: patent, No supplemental oxygen in use on arrival. Oral cavity: clear, sg Trachea midline. Breathing/Chest: Respiratory pattern: regular, Respiratory effort: spontaneous, unlabored, Breath sounds: clear, bilaterally. Chest inspection: symmetrical rise and fall of the chest. Circulation: Pulses: palpable . Skin color: pink, Skin temperature: warm, dry. Disability Alert. 18:15 Reassessment Airway Airway Patent Breathing/Chest Respiratory pattern Regular sg Respiratory effort Spontaneous Unlabored Chest inspection Symmetrical Circulation Pulses Palpable Color [place] Pale Disability Alert. Secondary Survey: 17:15 Musculoskeletal: Bony deformity noted of left leg. sg 18:15 HEENT: No deficits noted. Gastrointestinal: No deficits noted. : No deficits noted. sg Assessment: 17:15 General: Appears in no apparent distress. Behavior is calm, cooperative. Pain: Pain sg currently is 10 out of 10 on a pain scale. Neuro: Level of Consciousness is awake, alert, obeys commands, Oriented to person, place, time, situation. Cardiovascular: Capillary refill < 3 seconds Patient's skin is warm and dry. Respiratory: Airway is patent Trachea midline Respiratory effort is even, unlabored, Respiratory pattern is regular, symmetrical. GI: No deficits noted. : No signs and/or symptoms were reported regarding the genitourinary system. EENT: No signs and/or symptoms were reported regarding the EENT system. Derm: abrasions noted to left forearm, left wang. Musculoskeletal: Bony deformity noted of left wang. 18:00 Reassessment: pt friend at [employer] [facility], reports " he (pt) requesting to go outside sg and smoke." pt and pt family and pt friend educated on smoke free campus, pt is not currently stable enough to walk outside to go smoke across the street. pt continues to request to go outside to smoke. pt offered a nicotene patch, but he refused, stating " i dont want no fucking patch, i just bought a pack of cigarretts why would i want a fucking patch?!". 18:22 Reassessment: Pt is getting increasingly restless and agitated stating that he wants to ss go outside now with wheelchair or crutches. Mother and brother are at bedside talking with patient to calm him down. Pt states, "You better hurry, I'm getting agitated.". 18:34 Reassessment: Point of Contact (mother)Leonor: . ss 19:00 Reassessment: RECD REPORT FROM NADI SEGURA. 22YO WM P/W TIB/FIB DEFORMITY AFTER FALL. SPLINT bp IN PLACE, ADMIT IN PROCESS. PT LOWER EXTREMITY NEUROVASCULAR INTACT, VS STABLE ON MONITOR. 19:23 Reassessment: PT REFUSING ADMIT, FURTHER TREATMENT AND VITALS. PT INSISTS ON EXISTING bp HOSPITAL AND GOING HOME. PT ADVISED BY PROVIDER AND STAFF THAT THIS IS NOT IN PT'S BEST INTEREST FOR HEALING OF LLE FX. PT REMOVED OWN PIV AND INSISTED ON LEAVING, SIGNED AMA FORM. PT ADVISED OF SIGNIFICANT RISK OF MORBIDITY AND EXACT NATURE OF COMPLICATED FX. PT CONTINUED TO REFUSE AND INSIST ON LEAVING. PT ADVISED TO RETURN IS S/S WORSEN OR IF HE RECONSIDERS. PT LEFT VIA W/C WITH FAMILY. Vital Signs: 17:15 BP 154 / 115; Pulse 99; Resp 22; Temp 97.7; Pulse Ox 100% on R/A; Weight 83.91 kg; ph Height 6 ft. 0 in. (182.88 cm); Pain 10/10; 18:15 BP 136 / 86; Pulse 88; Resp 16; Pulse Ox 100% on R/A; Pain 10/10; sg 17:15 Body Mass Index 25.09 (83.91 kg, 182.88 cm) ph [place] Coma Score: 17:15 Eye Response: spontaneous(4). Verbal Response: oriented(5). Motor Response: obeys ph commands(6). Total: 15. Trauma Score (Adult): 17:15 Eye Response: spontaneous(1); Verbal Response: oriented(1); Motor Response: obeys ph commands(2); Systolic BP: > 89 mm Hg(4); Respiratory Rate: 10 to 29 per min(4); [place] Score: 15; Trauma Score: 12 18:15 Eye Response: spontaneous(1); Verbal Response: oriented(1); Motor Response: obeys sg commands(2); Systolic BP: > 89 mm Hg(4); Respiratory Rate: 10 to 29 per min(4); [place] Score: 15; Trauma Score: 12 ED Course: 17:07 Patient arrived in ED. mr 17:14 Triage completed. ph 17:15 Patient has correct armband on for positive identification. Bed in low position. Call sg light in reach. Side rails up X 1. 17:15 Maintain EMS IV. Dressing intact. Good blood return noted. Site clean \\T\\ dry. Gauge \\T\\ sg site: 18g RIGHT AC. 17:16 Kal Samayoa NP is PHCP. pm1 17:16 Néstor Arora MD is Attending Physician. pm1 17:16 Arm band placed on. ph 17:21 Kay Mcgraw RN is Primary Nurse. hb 17:45 Patient maintains SpO2 saturation greater than 95% on room air. Thermoregulation: warm sg blanket given to patient. 18:23 Tib Fib Left XRAY In Process Unspecified. EDMS 18:43 Aracely Steve MD is Hospitalizing Provider. pm1 Administered Medications: 17:57 Drug: morphine 4 mg Route: IVP; Site: right antecubital; sg 19:26 Follow up: Response: Pain is decreased bp 17:58 Drug: Zofran 4 mg Route: IVP; Site: right antecubital; sg 19:26 Follow up: Response: Nausea is decreased bp Intake: 17:15 IV: 600ml (IV Fluid); Total: 600ml. ph Output: 17:15 Urine: 0ml; Total: 0ml. ph Outcome: 18:44 Decision to Hospitalize by Provider. pm1 19:27 Patient left the ED. bp Signatures: Dispatcher [employer] EDUT hJoan Dominguez RN RN Cecilia Mendoza mr OglesbyDiane RN RN Magnolia Chambers RN RN Kal Samayoa, HINA PROFESSOR OF RELIGION pm1 Kay Mcgraw RN RN hb Peltier, Brian, RN RN bp Corrections: (The following items were deleted from the chart) 18:24 18:15 BP 136 / 86; Pulse 88bpm; Resp 16bpm; Pulse Ox 100% RA; Pain 10/10; sg sg
[2018-01-31 19:08] LABS: Absolute Lymphocytes (CBC) 1.6 K/uL (0.7-4.9); Absolute Monocytes 1.4 K/uL (0.1-1.3); Absolute Neutrophil 13.4 K/uL (1.8-8.0); Basophils % 0.2 % (0-1.3); Eosinophils % 0.2 % (0-4.4); Hematocrit 47.4 % (39.6-49.0); Lymphocytes % 9.8 % (15.3-44.8); MCV 92.4 fL (80-100); MPV 8.1 fL (7.6-11.3); Monocytes % 8.3 % (3.3-12.3); RBC Red Blood Cell Count 5.13 M/uL (4.33-5.43)
[2018-01-31 19:11] LABS: Protime INR 1.14
[2018-01-31 19:22] LABS: BUN Blood Urea Nitrogen 7 mg/dL (7-18); Bicarbonate 28 mmol/L (21-32); Glucose Level 96 mg/dL (74-106); Potassium 3.3 mmol/L (3.5-5.1); Sodium Level 140 mmol/L (136-145)
[2018-01-31 19:40] VITALS: TEMP 97.7; O2SAT 100
[2018-01-31 19:41] VITALS: BP 136/86
--- NOTE | 2018-01-31 19:56 | RAD REPORT ---
EXAM DESCRIPTION: RAD - Tib Fib Left - 01/31/2018 6:24 pm CLINICAL HISTORY: Fall, gross deformity of the leg COMPARISON: None. FINDINGS: Comminuted transverse fracture of the proximal shaft tibia noted. There is a large anterio r free fracture fragment. Comminuted fracture of the proximal fibula shaft also present. There is a m ild 10-2015 degree lateral angulation deformity of the distal fracture fragments. No overlap. Ankle and knee joints show no acute findings. There is a trace amount of fluid in the knee joint but no evidence for fracture or internal derangement. No foreign body. IMPRESSION: Comminuted fractures of the proximal shaft tibia and fibula with a mild lateral angulati on deformity.
--- NOTE | 2018-01-31 23:35 | P.HP ---
Certification for Inpatient Patient admitted to: Inpatient With expected LOS: >2 Midnights Practitioner: I am a practitioner with admitting privileges, knowledge of patient current condition, hospital course, and medical plan of care. Services: Services provided to patient in accordance with Admission requirements found in Title 42 Section 412.3 of the Code of Federal Regulations Patient History Date of Service: 01/31/18 Reason for admission: Tibial and fibular fracture History of Present Illness: Mr Davis is a 22-year-old male with history of seizure disorder, not under treatment currently, he this afternoon to [facility] ER complaining of left leg pain after fell into a hole on the the yard, leading with severe pain in his leg. There was obvious deformity and swelling of the left leg. He was transferred by EMS to ER this afternoon. X ray was remarkable for tibial and fibular comminuted fracture. Initially he declined admission and went home AMA. However he came back due to severe pain. Allergies No Known Drug Allergies Allergy (Verified 12/25/17 03:36) Unknown Home medications list reviewed: Yes Home Medications: NK [No Home Meds] 12/25/17 - Past Medical/Surgical History Diabetic: No -: Seizures -: Asthma -: Compound FX Left Arm - Family History Family History: Reviewed- Non-Contributory - Social History Smoking Status: Current every day smoker Counseled patient to stop smoking for: less than 10 minutes Smoking therapy provided: Yes Patient receptive to therapy: No Alcohol use: Yes CD- Drugs: Yes Caffeine use: Yes Place of Residence: Home Review of Systems 10-point ROS is otherwise unremarkable Physical Examination - Vital Signs Temperature: 97.7 F Blood Pressure: 136/86 Pulse: 88 Respirations: 16 - Physical Exam General: Alert, In no apparent distress HEENT: Atraumatic, PERRLA, Mucous membr. moist/pink, EOMI, Sclerae nonicteric Neck: Supple, 2+ carotid pulse no bruit, No LAD, Without JVD or thyroid abnormality Respiratory: Clear to auscultation bilaterally, Normal air movement Cardiovascular: Regular rate/rhythm, Normal S1 S2 Gastrointestinal: Normal bowel sounds, No tenderness Musculoskeletal: Swelling (Left leg), Tenderness (Left leg) Integumentary: No rashes Neurological: Normal speech, Normal tone, Normal affect Lymphatics: No axilla or inguinal lymphadenopathy - Studies Laboratory Data (last 24 hrs) 01/31/18 18:55: PT 13.5 H, INR 1.14, APTT 25.6 01/31/18 18:55: Sodium 140, Potassium 3.3 L, BUN 7, Creatinine 0.90, Glucose 96 01/31/18 18:55: WBC 16.4 H, Hgb 15.9, Hct 47.4, Plt Count 307 Assessment and Plan - Problems (Diagnosis) (1) Closed fracture of tibial plafond with fibula involvement Status: Acute Qualifiers: Encounter type: initial encounter Laterality: left Qualified Code(s): S82.872A - Displaced pilon fracture of left tibia, initial encounter for closed fracture; S82.832A - Other fracture of upper and lower end of left fibula, initial encounter for closed fracture (2) History of seizure disorder Status: Acute - Plan 1. Comminuted tibial and fibular fracture: Patient will remain NPO after midnight. Dr. Bravo has been consult I will see the patient in the morning. He is clear for surgical fixation. 2. History of seizure disorder: Will order seizure precautions. No seizure activity recently. - Advance Directives Does patient have a Living Will: No Does patient have a Durable POA for Healthcare: No - Code Status/Comfort Care Code Status Assessed: Yes Code Status: Full Code
== END 2018-01-31 19:27 | disposition left against medical advice (07) ==
LOC: ER 17:03
PROC: 2W3RX1Z Immobilization of Left Lower Leg using Splint (ICD-10-PCS; principal; 2018-01-31)
DX: S82.252A Displaced comminuted fracture of shaft of left tibia, initial encounter for closed fracture (principal); S82.452A Displaced comminuted fracture of shaft of left fibula, initial encounter for closed fracture; W17.2XXA Fall into hole, initial encounter; Y93.01 Activity, walking, marching and hiking; Y92.89 Other specified places as the place of occurrence of the external cause; Z88.6 Allergy status to analgesic agent; F17.210 Nicotine dependence, cigarettes, uncomplicated; G40.909 Epilepsy, unspecified, not intractable, without status epilepticus
CPT/HCPCS: 36415; 80048; 85025; 85610; 85730; 86850; 86900; 86901; 96374; 96375; 99284; J2405

== ENCOUNTER 2018-01-31 22:09 | Observation (INO) | payer SELFPAY ==
--- NOTE | 2018-01-31 22:49 | EDPHYS ---
Physician Documentation [facility] Name: Doctor Davis Age: 22 yrs Sex: Male : 1995 Arrival Date: 01/31/2018 Time: 22:10 Bed 7 Private MD: ED Physician Cipriano Mullen HPI: 01/31 22:30 This 22 yrs old Male presents to ER via Wheelchair with complaints of Leg pm1 Injury, Leg Pain. 22:30 The patient presents with an injury, pain. The complaints affect the left wang. Patient pm1 was seen earlier today and left AMA because he wanted to go home and sleep in his bed at home. Patient returned to the ER and is not wanting to stay in the hospital for treatment. Patient reports that he used marijuana at home to attempt to ease the pain. Patient reports that he broke his leg by accidentally stepping in a hole in his backyard and fell forward scraping his knee and palms of his hands. Historical: - Allergies: 22:40 Tylenol; ak1 - Home Meds: 22:40 Dilantin Oral [Active]; Depakote Oral [Active]; Carbamazepine Oral [Active]; ak1 - PMHx: 22:40 Seizures; ak1 - PSHx: 22:40 None; ak1 - Immunization history:: Adult Immunizations unknown. - Social history:: Smoking status: Patient uses tobacco products, smokes one-half pack cigarettes per day, Patient uses street drugs, marijuana. - Ebola Screening: : No symptoms or risks identified at this time. ROS: 22:30 Constitutional: Negative for fever, chills, and weight loss, Eyes: Negative for injury, pm1 pain, redness, and discharge, ENT: Negative for injury, pain, and discharge, Neck: Negative for injury, pain, and swelling, Cardiovascular: Negative for chest pain, palpitations, and edema, Respiratory: Negative for shortness of breath, cough, wheezing, and pleuritic chest pain, Abdomen/GI: Negative for abdominal pain, nausea, vomiting, diarrhea, and constipation, Back: Negative for injury and pain. 22:30 Skin: Negative for injury, rash, and discoloration, Neuro: Negative for headache, weakness, numbness, tingling, and seizure. 22:30 MS/extremity: Positive for injury or acute deformity, pain, swelling, of the left lower leg. Exam: 22:30 Constitutional: This is a well developed, well nourished patient who is awake, alert, pm1 and in no acute distress. Head/Face: Normocephalic, atraumatic. Eyes: Pupils equal round and reactive to light, extra-ocular motions intact. Lids and lashes normal. Conjunctiva and sclera are non-icteric and not injected. Cornea within normal limits. Periorbital areas with no swelling, redness, or edema. ENT: Nares patent. No nasal discharge, no septal abnormalities noted. Tympanic membranes are normal and external auditory canals are clear. Oropharynx with no redness, swelling, or masses, exudates, or evidence of obstruction, uvula midline. Mucous membranes moist. Neck: Trachea midline, no thyromegaly or masses palpated, and no cervical lymphadenopathy. Supple, full range of motion without nuchal rigidity, or vertebral point tenderness. No Meningismus. Chest/axilla: Normal chest wall appearance and motion. Nontender with no deformity. No lesions are appreciated. Cardiovascular: Regular rate and rhythm with a normal S1 and S2. No gallops, murmurs, or rubs. Normal PMI, no JVD. No pulse deficits. Respiratory: Lungs have equal breath sounds bilaterally, clear to auscultation and percussion. No rales, rhonchi or wheezes noted. No increased work of breathing, no retractions or nasal flaring. Abdomen/GI: Soft, non-tender, with normal bowel sounds. No distension or tympany. No guarding or rebound. No evidence of tenderness throughout. Back: No spinal tenderness. No costovertebral tenderness. Full range of motion. 22:30 Skin: Appearance: normal except for affected area, injury, abrasion(s), small abrasion noted, of the left knee and palm of left hand. 22:30 Neuro: Orientation: is normal, Motor: is normal, moves all fours, Sensation: is normal, no obvious gross deficits, Neurovascular status intact to left foot. capillary refill brisk to all left toes. Vital Signs: 22:40 BP 146 / 79; Pulse 73; Resp 16; Temp 97.3(TE); Pulse Ox 98% on R/A; Weight 70.31 kg ak1 (R); Height 5 ft. 7 in. (170.18 cm) (R); Pain 10/10; 23:27 BP 156 / 89; Pulse 65; Resp 16; Temp 97.4; Pulse Ox 99% on R/A; Pain 6/10; ak1 22:40 Body Mass Index 24.28 (70.31 kg, 170.18 cm) ak1 MDM: 22:23 Patient medically screened. pm1 22:46 Data reviewed: vital signs. Data interpreted: Pulse oximetry: on room air is 98 %. pm1 Interpretation: normal. Counseling: I had a detailed discussion with the patient and/or guardian regarding: the historical points, exam findings, and any diagnostic results supporting the discharge/admit diagnosis, lab results, radiology results, the need for further work-up and treatment in the hospital. 22:46 Physician consultation: Aracely Steve MD was contacted at 22:40, regarding admission, pm1 patient's condition, and will see patient in ED. 01/31 22:25 Order name: Urine Drug Screen pm1 01/31 22:25 Order name: IV Saline Lock; Complete Time: 22:34 pm1 02/01 00:00 Order name: XRAY Wrist RIGHT 3 view ak1 Administered Medications: 22:55 Drug: morphine 4 mg Route: IVP; Site: left antecubital; ak1 23:27 Follow up: Response: No adverse reaction ak1 22:55 Drug: Zofran 4 mg Route: IVP; Site: left antecubital; ak1 23:27 Follow up: Response: No adverse reaction ak1 Disposition: 02/01 03:27 Co-signature as Attending Physician, Cipriano Mullen MD I agree with the assessment and tw4 plan of care. Attestation: The patient's history, exam findings, diagnostics, and a summary of any interventions or procedures was reviewed in detail with Kal Samayoa NP. Disposition: 01/31/18 22:48 Hospitalization ordered by Aracely Steve for Observation. Preliminary diagnosis are Displaced comminuted fracture of shaft of left tibia, Displaced comminuted fracture of shaft of left fibula. - Bed requested for Telemetry/MedSurg (observation). - Status is Observation. ak1 - Condition is Stable. - Problem is new. - Symptoms have improved. UTI on Admission? No Signatures: Dispatcher [employer] EDMS Selena Garcia RN RN ak1 Merline Fall RN RN cg Kal Samayoa, PRODUCTION COUNTER PRODUCTION COUNTER pm1 Cipriano Mullen MD MD tw4 Corrections: (The following items were deleted from the chart) 01/31 22:35 22:26 CBC+H.LAB.BRZ ordered. EDMS EDMS 22:36 22:26 BASIC METABOLIC PANEL+C.LAB.BRZ ordered. EDMS EDMS 22:36 22:26 PROTIME (+INR)+COAG.LAB.BRZ ordered. EDMS EDMS 22:36 22:26 PTT, ACTIVATED+COAG.LAB.BRZ ordered. EDMS EDMS 22:36 22:26 TYPE AND SCREEN+BB.LAB.BRZ ordered. EDMS EDMS 22:37 22:34 PHENYTOIN (DILANTIN)+C.LAB.BRZ ordered. EDMS EDMS 22:37 22:34 VALPROIC ACID (DEPAKOTE)+C.LAB.BRZ ordered. EDMS EDMS 23:25 22:48 Hospitalization Ordered by Aracely Steve MD for Observation. Preliminary cg diagnosis is Displaced comminuted fracture of shaft of left tibia; Displaced comminuted fracture of shaft of left fibula. Bed requested for Telemetry/MedSurg (observation). Status is Observation. Condition is Stable. Problem is new. Symptoms have improved. UTI on Admission? No. pm1 23:32 23:25 01/31/2018 22:48 Hospitalization Ordered by Aracely Steve MD for Observation. cg Preliminary diagnosis is Displaced comminuted fracture of shaft of left tibia; Displaced comminuted fracture of shaft of left fibula. Bed requested for Telemetry/MedSurg (observation). Status is Observation. Condition is Stable. Problem is new. Symptoms have improved. UTI on Admission? No. cg 02/01 00:57 01/31 23:32 01/31/2018 22:48 Hospitalization Ordered by Aracely Steve MD for ak1 Observation. Preliminary diagnosis is Displaced comminuted fracture of shaft of left tibia; Displaced comminuted fracture of shaft of left fibula. Bed requested for Telemetry/MedSurg (observation). Status is Observation. Condition is Stable. Problem is new. Symptoms have improved. UTI on Admission? No. cg
--- NOTE | 2018-01-31 22:49 | ER ---
Nurse's Notes [facility] Name: Doctor Davis Age: 22 yrs Sex: Male : 1995 Arrival Date: 01/31/2018 Time: 22:10 Bed 7 Private MD: Diagnosis: Displaced comminuted fracture of shaft of left tibia;Displaced comminuted fracture of shaft of left fibula Presentation: 01/31 22:34 Presenting complaint: Patient states: left AMA earlier today. pt returns due to pain in ak1 left leg. pt admits to going home to smoking "weed". Transition of care: patient was not received from another setting of care. Onset of symptoms is unknown. Risk Assessment: Do you want to hurt yourself or someone else? Patient reports no desire to harm self or others. Initial Sepsis Screen: Does the patient meet any 2 criteria? No. Patient's initial sepsis screen is negative. Does the patient have a suspected source of infection? No. Patient's initial sepsis screen is negative. Care prior to arrival: pt returned to ER with Orthoglass splint still in place. 22:34 Method Of Arrival: Wheelchair ak1 22:34 Acuity: CORINNA 3 ak1 Triage Assessment: 22:40 General: Appears in no apparent distress. Behavior is cooperative. Pain: Complains of ak1 pain in left leg. EENT: No signs and/or symptoms were reported regarding the EENT system. Neuro: No deficits noted. Cardiovascular: No deficits noted. Respiratory: No deficits noted. GI: No signs and/or symptoms were reported involving the gastrointestinal system. : No signs and/or symptoms were reported regarding the genitourinary system. Derm: multiple abrasions from fall. Musculoskeletal: pt with Orthoglass splint to left leg from previous ER visit today where pt AMA. Injury Description: pt stated he fell into a hole in ground. Historical: - Allergies: 22:40 Tylenol; ak1 - Home Meds: 22:40 Dilantin Oral [Active]; Depakote Oral [Active]; Carbamazepine Oral [Active]; ak1 - PMHx: 22:40 Seizures; ak1 - PSHx: 22:40 None; ak1 - Immunization history:: Adult Immunizations unknown. - Social history:: Smoking status: Patient uses tobacco products, smokes one-half pack cigarettes per day, Patient uses street drugs, marijuana. - Ebola Screening: : No symptoms or risks identified at this time. Screenin:43 Abuse screen: Denies threats or abuse. Denies injuries from another. Nutritional ak1 screening: No deficits noted. Tuberculosis screening: No symptoms or risk factors identified. Fall Risk None identified. Assessment: 22:45 Reassessment: Patient appears in no apparent distress at this time. No changes from ak1 previously documented assessment. Patient and/or family updated on plan of care and expected duration. Pain level reassessed. pt informed to leave monitoring equipment on for continuous monitoring especially after pain medications given. Vital Signs: 22:40 BP 146 / 79; Pulse 73; Resp 16; Temp 97.3(TE); Pulse Ox 98% on R/A; Weight 70.31 kg ak1 (R); Height 5 ft. 7 in. (170.18 cm) (R); Pain 10/10; 23:27 BP 156 / 89; Pulse 65; Resp 16; Temp 97.4; Pulse Ox 99% on R/A; Pain 6/10; ak1 22:40 Body Mass Index 24.28 (70.31 kg, 170.18 cm) ak1 ED Course: 22:10 Patient arrived in ED. al2 22:22 Kal Samayoa NP is PHCP. pm1 22:23 Cipriano Mullen MD is Attending Physician. pm1 22:34 Selena Garcia, COLTON is Primary Nurse. ak1 22:37 Triage completed. ak1 22:40 Arm band placed on Patient placed in an exam room, on a stretcher, on pulse oximetry, ak1 Patient notified of wait time. 22:43 Patient has correct armband on for positive identification. Bed in low position. Call ak1 light in reach. Side rails up X2. Pulse ox on. NIBP on. left lower leg elevated with pillows . 22:43 No provider procedures requiring assistance completed. Inserted saline lock: 18 gauge ak1 in left antecubital area, using aseptic technique. 22:44 Patient admitted, IV remains in place. ak1 22:47 Aracely Steve MD is Hospitalizing Provider. pm1 Administered Medications: 22:55 Drug: morphine 4 mg Route: IVP; Site: left antecubital; ak1 23:27 Follow up: Response: No adverse reaction ak1 22:55 Drug: Zofran 4 mg Route: IVP; Site: left antecubital; ak1 23:27 Follow up: Response: No adverse reaction ak1 Outcome: :44 Condition: good ak1 22:44 Instructed on the need for admit. 22:48 Decision to Hospitalize by Provider. pm1 02/01 00:00 Admitted to Med/surg accompanied by tech, via stretcher, room 204, with chart, Report ak1 called to Brigid 00:57 Patient left the ED. ak1 Signatures: Selena Garcia RN RN ak1 Kal Samayoa, HINA MEAT SMOKER pm1 Cheryl Moore2
[2018-01-31] MEDS ORDERED: MORPHINE 4 MG/ML SYR ONE (22:54)
[2018-01-31] MEDS ORDERED: ONDANSETRON 4 MG/2 ML VIAL ONE (22:54)
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
[2018-02-01] MEDS ORDERED: ONDANSETRON 4 MG/2 ML VIAL IV PRN (00:04)
[2018-02-01] MEDS ORDERED: ACETAMINOPHEN 500 MG TAB PO PRN (00:04)
[2018-02-01] MEDS: NA CHLORIDE 0.9% 1,000 ML IV SCH ×2 (01:25→08:46)
[2018-02-01] MEDS: MORPHINE 2 MG/ML SYR IV PRN ×4 (04:40→17:08)
[2018-02-01 05:14] LABS: Absolute Lymphocytes (CBC) 1.4 K/uL (0.7-4.9); Absolute Monocytes 1.6 K/uL (0.1-1.3); Absolute Neutrophil 9.8 K/uL (1.8-8.0); Basophils % 0.2 % (0-1.3); Eosinophils % 0.4 % (0-4.4); Lymphocytes % 10.6 % (15.3-44.8); MCH 31.9 pg (27.0-35.0); MCV 91.4 fL (80-100); MPV 8.5 fL (7.6-11.3); Monocytes % 12.7 % (3.3-12.3); RBC Red Blood Cell Count 4.71 M/uL (4.33-5.43)
[2018-02-01 05:28] LABS: BUN Blood Urea Nitrogen 6 mg/dL (7-18); Bicarbonate 27 mmol/L (21-32); Glucose Level 103 mg/dL (74-106); Potassium 3.6 mmol/L (3.5-5.1); Sodium Level 136 mmol/L (136-145)
[2018-02-01 05:48] VITALS: O2SAT 97
--- NOTE | 2018-02-01 07:14 | RAD REPORT ---
EXAM DESCRIPTION: RAD - Wrist Right 3 View - 02/01/2018 12:43 am CLINICAL HISTORY: Hand pain, trauma COMPARISON: None. FINDINGS: No acute fracture changes seen. The ventral angulation of the fifth metacarpal head has th e appearance of old trauma remodeling. An acute fracture line is not currently seen. Correlation is n eeded with any symptoms referable to the fifth MCP joint or fifth metacarpal head. There is no disloc ation or periosteal reaction noted. No foreign body seen. Mild soft tissue swelling seen. . IMPRESSION: No acute fracture confirmed. Angulation of the fifth metacarpal head is believed to be from old fracture remodeling. Correlation i s needed with any matching history or localized pain symptoms to the fifth MCP joint.
[2018-02-01] MEDS ORDERED: KETOROLAC 30 MG/ML INJ IV PRN (07:19)
--- NOTE | 2018-02-01 08:06 | P.PN ---
Subjective Date of Service: 02/01/18 Primary Care Provider: none Chief Complaint: Fall Subjective: Other (Patient suffered a fall yesterday. Now with left tibia- fibular fracture.) Physical Examination - Vital Signs Temperature: 98 F Blood Pressure: 184/91 Pulse: 69 Respirations: 18 Pulse Ox (%): 98 - Physical Exam General: Alert, In no apparent distress, Cooperative HEENT: Atraumatic Neck: Supple Respiratory: Clear to auscultation bilaterally, Normal air movement Cardiovascular: Normal pulses, Regular rate/rhythm Gastrointestinal: Normal bowel sounds, Soft and benign, Non-distended, No tenderness, No masses, No rebound, No guarding Musculoskeletal: Other (Left lower extremity currently in a splint.) Integumentary: Other (Abrasion to the left hand) Neurological: Normal speech, Normal strength at 5/5 x4 extr, Normal tone, Normal affect, Other (Multiple tattoos noted.) - Studies Laboratory Data (last 24 hrs) 01/31/18 22:25: PT Cancelled, INR Cancelled, APTT Cancelled 01/31/18 22:25: Sodium Cancelled, Potassium Cancelled, BUN Cancelled, Creatinine Cancelled, Glucose Cancelled 01/31/18 22:25: WBC Cancelled, Hgb Cancelled, Hct Cancelled, Plt Count Cancelled Medications List Reviewed: Yes Assessment & Plan - Problems (Diagnosis) (1) Tibia/fibula fracture Current Visit: Yes Status: Acute Plan: Patient currently in a splint. Will continue with pain medication. Orthopedics to evaluate patient. Patient likely needs surgical intervention. Patient initially left AMA from the ER became back with increased pain. Anticipate surgical intervention and likely discharge thereafter. Patient with history of noncompliance. Will check urine drug screen. Qualifiers: Encounter type: initial encounter Fracture type: closed Laterality: left Qualified Code(s): S82.202A - Unspecified fracture of shaft of left tibia, initial encounter for closed fracture; S82.402A - Unspecified fracture of shaft of left fibula, initial encounter for closed fracture (2) Abrasion hand Current Visit: Yes Status: Acute Plan: Left hand abrasion noted. Likely from fall. Qualifiers: Encounter type: initial encounter Laterality: left Qualified Code(s): S60.512A - Abrasion of left hand, initial encounter (3) Fall Current Visit: Yes Status: Acute Plan: Patient reported a fall yesterday the leading to fracture. Continue as above. Qualifiers: Encounter type: initial encounter Qualified Code(s): W19.XXXA - Unspecified fall, initial encounter Discharge Plan: Home Plan to discharge in: 24 Hours - Code Status/Comfort Care Code Status Assessed: Yes Time Spent Managing Pts Care (In Minutes): 55
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
[2018-02-01] MEDS ORDERED: LORazepam 2 MG/ML VIAL IV PRN (11:56)
[2018-02-01 12:29] VITALS: BMI 27.1
[2018-02-01] MEDS ORDERED: HYDROCODONE/APAP 7.5/325 MG TAB PO ONE (17:00)
--- NOTE | 2018-02-01 17:08 | P.DS ---
Admission Date: 01/31/18 Discharge Date: 02/01/18 Primary Care Provider: none Disposition: ROUTINE DISCHARGE Discharge Condition: GOOD Reason for Admission: Fall Consultations: Orthopedics-Dr. Bravo Procedures: X-ray left lower ext: COMPARISON: None. FINDINGS: Comminuted transverse fracture of the proximal shaft tibia noted. There is a large anterior free fracture fragment. Comminuted fracture of the proximal fibula shaft also present. There is a mild degree lateral angulation deformity of the distal fracture fragments. No overlap. Ankle and knee joints show no acute findings. There is a trace amount of fluid in the knee joint but no evidence for fracture or internal derangement. No foreign body. IMPRESSION: Comminuted fractures of the proximal shaft tibia and fibula with a mild lateral angulation deformity. X-ray right hand: COMPARISON: None. FINDINGS: No acute fracture changes seen. The ventral angulation of the fifth metacarpal head has the appearance of old trauma remodeling. An acute fracture line is not currently seen. Correlation is needed with any symptoms referable to the fifth MCP joint or fifth metacarpal head. There is no dislocation or periosteal reaction noted. No foreign body seen. Mild soft tissue swelling seen. . IMPRESSION: No acute fracture confirmed. Angulation of the fifth metacarpal head is believed to be from old fracture remodeling. Correlation is needed with any matching history or localized pain symptoms to the fifth MCP joint. - Problems (1) Tibia/fibula fracture Onset Date: 02/01/18 Current Visit: Yes Status: Acute Qualifiers: Encounter type: initial encounter Fracture type: closed Laterality: left Qualified Code(s): S82.202A - Unspecified fracture of shaft of left tibia, initial encounter for closed fracture; S82.402A - Unspecified fracture of shaft of left fibula, initial encounter for closed fracture (2) Abrasion hand Onset Date: 02/01/18 Current Visit: Yes Status: Acute Qualifiers: Encounter type: initial encounter Laterality: left Qualified Code(s): S60.512A - Abrasion of left hand, initial encounter (3) Fall Onset Date: 02/01/18 Current Visit: Yes Status: Acute Qualifiers: Encounter type: initial encounter Qualified Code(s): W19.XXXA - Unspecified fall, initial encounter (4) Tobacco abuse Current Visit: Yes Status: Chronic Brief History of Present Illness: 22-year-old male presented emergency room with pain to the left lower extremity. Patient apparently fell at home. He reports that he fell in the backyard in a hole made by his dog. Patient was seen in the emergency room earlier in the day. The patient at that time was to be admitted for further evaluation including orthopedic consultation. Apparently the patient left against medical advice to go home and smoke "weed" as per ER notes. The patient returned again later due to increased pain. The patient was admitted for further evaluation. Hospital Course: Patient was found to have comminuted fractures of the proximal shaft of the tibia and fibula with lateral angulation deformity. Patient was admitted for further evaluation and orthopedic consultation. Patient was evaluated by orthopedics. Possible surgical intervention was anticipated. During the course of his stay patient apparently dislodged his IV site as he was wanting to go outside to smoke. When this occurred I had a long discussion with the patient and family along with case management and the nurses. We addressed the importance of remaining in the hospital and not going outside to smoke. At 1st he was reluctant but he complied. The mother further reported that the patient has underlying mental illness including ADD which may have contributed to his desire in not remaining in the room. In review of prior records the patient was seen in December of this year for suicide ideation. At that time he apparently overdosed on Tylenol. The patient was transferred to psychiatry for further evaluation at that time after initial treatment here. It is unclear whether the patient has followed up with psychiatry after that time. I requested a urine drug screen after the incident. Patient was not able to give a urine sample. As mentioned above, Orthopedics had initially anticipated surgery. But after the physician human resource assistant for orthopedics reviewed the case further with the primary orthopedic surgeon-Dr. Bravo, it was decided that the best course of action for the patient would not be surgical repair. Orthopedics recommended that the patient have delayed lower extremity casting after considering multiple factors including the patient's history of mental illness and questionable compliance. This was addressed in detail with the patient and family. Family was upset due to the change in the course of initial anticipation of surgery. This was addressed in detail again with case management and charge nurse present. Options were given to the patient and family. This included 2nd opinion by another orthopedic surgeon or to readdress this issue with the primary orthopedic surgeon. I did readdress the issue with the primary orthopedic surgeon. After long discussion with the primary orthopedic surgeon, he continue to recommend delayed lower extremity casting. He would not deviate from his plan. Surgery was not recommended even though the patient appeared to be compliant in the hospital. The primary orthopedic surgeon reassured me that this was a standard of care treatment for this condition especially due to his current circumstances and medical issues. Orthopedic surgery further insisted and recommended that the patient follow up at his office on Tuesday where he would continue to treat and take care of the patient. Orthopedic surgery did not feel it was necessary to come and rediscuss this issue with the patient and family as his decision would not change. Further discussion with orthopedics and patient/family likely would cause more dysfunction. I support the primary orthopedic surgeon decision. This was addressed in detail with the patient and family along with case management and charge nurse present. They were not satisfied with this. I therefore contacted multiple orthopedic surgeons for possible secondary opinions. The 3 other orthopedic surgeons in the area that have privileges at this facility recommended that the patient continue with the primary orthopedic surgeon's plan of care. The 3 other orthopedic surgeons were also not willing to do a 2nd opinion. The above issues were addressed in detail with [facility] management. All were in agreement with the current course of action which includes that the patient should follow up with the primary orthopedic surgeon to continue care as an outpatient. It is recommended that the patient continue with the splint at discharge. Nonweightbearing is recommended at this time. Patient will be provided crutches. Patient will need to follow up with Orthopedic surgery as an outpatient on Tuesday as described above. Patient may take ibuprofen 600 mg 1 pill 3 times a day as needed for pain. A limited supply of tramadol 50 mg 1 pill 3 times a day will also be provided. Prior to discharge patient and family will be provided information on other orthopedic surgeons in the area as there was some discussion with the family that they would consider not going to the primary orthopedic surgeon. I did reach out to one of the other orthopedics to see if they would see the patient as an outpatient. He continued to recommend that the patient follow up with the primary orthopedic surgeon as described above. Therefore, I will continue to recommend that the patient follow up with the primary orthopedic surgeon to continue and treat his condition on Tuesday. Total time of care about 3 hr. Vital Signs/Physical Exam: Temp Pulse Resp BP Pulse Ox 98.4 F 102 H 20 140/92 H 97 08/22/18 12:00 02/01/18 12:00 02/01/18 12:00 02/01/18 12:00 02/01/18 12:00 General: Alert, In no apparent distress, Oriented x3, Cooperative HEENT: Atraumatic Neck: Supple Respiratory: Clear to auscultation bilaterally, Normal air movement Cardiovascular: Normal pulses, Regular rate/rhythm Gastrointestinal: Normal bowel sounds, Soft and benign, Non-distended, No tenderness, No masses, No rebound, No guarding Musculoskeletal: No warmth, Other (Splint in place to the left lower extremity) Integumentary: Other (Abrasion noted to the home of the left hand) Neurological: Normal speech, Normal strength at 5/5 x4 extr, Normal tone, Normal affect Laboratory Data at Discharge: WBC 12.9 K/uL (4.3-10.9) H D 02/01/18 04:25 Hgb 15.0 g/dL (13.6-17.9) 02/01/18 04:25 Hct 43.0 % (39.6-49.0) 02/01/18 04:25 Plt Count 293 K/uL (152-406) 02/01/18 04:25 PT Cancelled 01/31/18 22:25 INR Cancelled 01/31/18 22:25 APTT Cancelled 01/31/18 22:25 Sodium 136 mmol/L (136-145) 02/01/18 04:25 Potassium 3.6 mmol/L (3.5-5.1) 02/01/18 04:25 BUN 6 mg/dL (7-18) L 02/01/18 04:25 Creatinine 0.70 mg/dL (0.55-1.3) 02/01/18 04:25 Glucose 103 mg/dL (74-106) 02/01/18 04:25 Home Medications: Tramadol HCl [Ultram] 50 mg PO TID #10 tablet 02/01/18 New Medications: Tramadol HCl [Ultram] 50 mg PO TID #10 tablet Patient Discharge Instructions: 1. Patient will need to follow up with Orthopedics-Dr. Bravo on Tuesday in preparation for Delayed Long Extremity Casting. No weight bearing to the Left lower ext. Patient will be provided crutches with instructions. 2. Patient may take Ibuprofen 600 mg one pill three times a day as needed for pain. Limited supply of tramadol 50 mg 1 pill 3 times a day as needed for pain will be provided. Diet: Regular Activity: Non weight bearing to LLE Followup: Tyrell Bravo MD [ACTIVE - CAN ADMIT] - Remy Guzman MD [ACTIVE - CAN ADMIT] - Time spent managing pt's care (in minutes): 120
[2018-02-01 18:29] VITALS: BP 146/92; TEMP 98
[2018-02-02] MEDS ORDERED: NICOTINE 21 MG/PAT TD SCH (09:00)
== END 2018-02-01 17:18 | disposition home or self-care (01) ==
LOC: ER 22:09 → ERHOLD 22:48 → 2ND 23:59
PROVIDERS: ADMIT Internal Medicine; ATTEND Family Medicine
DX: S82.252A Displaced comminuted fracture of shaft of left tibia, initial encounter for closed fracture (principal); S82.452A Displaced comminuted fracture of shaft of left fibula, initial encounter for closed fracture; W17.2XXA Fall into hole, initial encounter; Y92.096 Garden or yard of other non-institutional residence as the place of occurrence of the external cause; S60.512A Abrasion of left hand, initial encounter; F17.210 Nicotine dependence, cigarettes, uncomplicated; F98.8 Other specified behavioral and emotional disorders with onset usually occurring in childhood and adolescence; G40.909 Epilepsy, unspecified, not intractable, without status epilepticus; J45.909 Unspecified asthma, uncomplicated
CPT/HCPCS: 36415; 80048; 85025; 94760; 96374; 96375; 97163; 99285; G0378; J2270; J2405; J7030